=== PATIENT | female | born 1935 | race Caucasian/White ===

== ENCOUNTER → 2020-03-11 | Day surgery (SDC) | payer OTHER ==
[~2020-03-11] VITALS: Ht 160 cm; Wt 66.2 kg
[~2020-03-11] MED LIST: ALBUAER3 IN; B-COTAB59 PO; BUPIVACAINE W/ EPINEPH 0.25% INJ 50ML MDV ONE; CALCTAB50 PO; CARV25TA55 PO; FLUT1SPR5; GABA300C10 PO; LACTCAP35 PO; LIDOCAINE W/ EPINEPHRINE 2% INJ 20ML VIAL ONE; LOSARTAN POTASSIUM 25 MG TAB PO ONE; MIDAZOLAM HCL 1MG/1ML-2 ML VIAL ONE; MORPHINE SULF(PF) 0.5MG/ML 10ML VIAL ONE; MULT-1018 PO; ONDANSETRON HCL 4 MG/2 ML VIAL IV PRN; PROPOFOL 10 MG/ML 20 ML IV ONE; VANCOMYCIN HCL 1000 MG VL ONE; WARF5TAB71 PO; ceFAZolin 1GM/50ML 50 ML IV ONE; ePHEDrine SULFATE 50 MG/ML AMP IV PRN; fentaNYL CITRATE 100 MCG/2 ML VL IV PRN; fentaNYL CITRATE 100 MCG/2 ML VL ONE
[2020-03-11] MEDS: hydrALAZINE HCL 20 MG/ML VL IV PRN ×2 (11:04→11:27)
[2020-03-11 14:10] VITALS: BP 151/56
== END | disposition home or self-care (01) ==
LOC: SUR 07:09
PROVIDERS: ATTEND Anesthesiology Pain Medicine
DX: M48.062 Spinal stenosis, lumbar region with neurogenic claudication (principal); I10 Essential (primary) hypertension; D64.9 Anemia, unspecified; J45.909 Unspecified asthma, uncomplicated; K44.9 Diaphragmatic hernia without obstruction or gangrene; I48.91 Unspecified atrial fibrillation; Z11.59 Encounter for screening for other viral diseases; Z88.2 Allergy status to sulfonamides; Z88.8 Allergy status to other drugs, medicaments and biological substances; Z96.89 Presence of other specified functional implants
CPT/HCPCS: 22869; 22870; 72100; C1821; J0360; J0690; J2250; J2270; J2704; J3010; J3370; U0003; 76000

== ENCOUNTER → 2020-07-08 | Day surgery (SDC) | payer OTHER ==
[~2020-07-08] VITALS: Ht 160 cm; Wt 66.2 kg
[~2020-07-08] MED LIST changes: +BUPIVACAINE 0.25% INJ 50ML VIAL ONE; -BUPIVACAINE W/ EPINEPH 0.25% INJ 50ML MDV ONE; -GABA300C10 PO; +LOSA25TA38 PO; -LOSARTAN POTASSIUM 25 MG TAB PO ONE; -ONDANSETRON HCL 4 MG/2 ML VIAL IV PRN; +ONDANSETRON HCL 4 MG/2 ML VIAL ONE; +SODIUM CHLORIDE LOCK 10 ML ONE; +ceFAZolin 1GM/50ML 100 ML IV ONE; -ceFAZolin 1GM/50ML 50 ML IV ONE; -ePHEDrine SULFATE 50 MG/ML AMP IV PRN; -fentaNYL CITRATE 100 MCG/2 ML VL IV PRN
[2020-07-09 07:30] VITALS: BP 95/75
== END | disposition home or self-care (01) ==
LOC: SUR 07:18
PROVIDERS: ATTEND Anesthesiology Pain Medicine
DX: M48.061 Spinal stenosis, lumbar region without neurogenic claudication (principal); J45.909 Unspecified asthma, uncomplicated; Z96.89 Presence of other specified functional implants; Z90.710 Acquired absence of both cervix and uterus; Z79.899 Other long term (current) drug therapy; Z98.890 Other specified postprocedural states; Z20.828 Contact with and (suspected) exposure to other viral communicable diseases; Z53.8 Procedure and treatment not carried out for other reasons; Z88.1 Allergy status to other antibiotic agents; Z91.048 Other nonmedicinal substance allergy status
CPT/HCPCS: J0690; J2250; J2405; J2704; J3490

== ENCOUNTER 2024-11-18 06:05 | Inpatient (IN) | payer OTHER ==
[~2024-11-18] VITALS: Ht 160 cm; Wt 69.2 kg
[~2024-11-18 06:05] MED LIST changes: +ACET-1881 PO; +ALPR0.5T7 PO; +AMIO100T3 PO; +BUDE1AER4 PO; -BUPIVACAINE 0.25% INJ 50ML VIAL ONE; +FAMO-12 PO; -FLUT1SPR5; -LACTCAP35 PO; +LEVO50TA7 PO; -LIDOCAINE W/ EPINEPHRINE 2% INJ 20ML VIAL ONE; -LOSA25TA38 PO; -MIDAZOLAM HCL 1MG/1ML-2 ML VIAL ONE; -MORPHINE SULF(PF) 0.5MG/ML 10ML VIAL ONE; -ONDANSETRON HCL 4 MG/2 ML VIAL ONE; +OXYB5TAB14 PO; -PROPOFOL 10 MG/ML 20 ML IV ONE; -SODIUM CHLORIDE LOCK 10 ML ONE; +TRAM50TA2 PO; -VANCOMYCIN HCL 1000 MG VL ONE; +WARF-66 PO; -WARF5TAB71 PO; -ceFAZolin 1GM/50ML 100 ML IV ONE; -fentaNYL CITRATE 100 MCG/2 ML VL ONE
[2024-11-18] MEDS: ceFAZolin 2 GM/D5W100ml 100 ML IV ONE (06:41)
[2024-11-18] MEDS: LIDOCAINE 4MG/ML IV SOLN 500 ML IV ONE (06:43)
[2024-11-18] MEDS: MAGNESIUM SULFATE 1GM/100ML 100 ML IV ONE (06:43)
--- NOTE | 2024-11-18 07:17 | DVHHP2 ---
History Allergies: Coded Allergies: Iron (Verified Allergy, Unknown, 07/02/20) PO ONLY Sulfa Antibiotics (Verified Allergy, Unknown, 07/02/20) Chief Complaint: Cervical stenosis Present Illness(Onset/Duration Patient is here for elective spine surgery with Dr. Kerwin gonzalez C3-6 anterior cervical diskectomy and fusion with instrumentation and bone graft. Noncontributory Past Surgical History: Other (Hip surgeries heart valves x2 back surgery) Exam Exam General Appearance: None, Normal HEENT: Normal ENT Inspection Neck: Normal, Normal Inspection, Other (Patient is complaining of neck pain that goes up to her posterior occipital area sometimes on the bilateral neck and behind the ears.) Respiratory: No Accessory Muscle Use, None, No Respiratory Distress Cardiovascular: Other (Skin is pink warm and dry no complaints of chest pain) Gastrointestinal: Other (No complaints of nausea vomiting or diarrhea) Extremities: Other (Moves all extremities independently 5/5 strength patient does state that she does drop items when her hands become fatigued) Neurologic: Other (Patient states that she gets numb hands that wake her up at night, she states that the hands are weak she will drop objects frequently) Reflexes: Normal Skin: Normal Color LUIS GAYLE VP [employer] Nov 18, 2024 07:17
--- NOTE | 2024-11-18 07:21 | POSTOP ---
Post-Operative Note Post-Operative Note Preop Diagnosis Cervical stenosis with neurogenic claudication Postop Diagnosis: Cervical Degenerative Disk Disease and Spinal Stenosis Causing incapacitating neck pain, radiculopathy and progressive neurologic deficit Operation performed C3-6 anterior cervical diskectomy and fusion with instrumentation and bone graft Specimen None Anesthesia: General Anesthesiologist: Eusebio BRAY Blood Loss(fluid mgmt) See anesthesia record Tourniquet Time None Surgeon Dr. Kerwin Myers Drum Plater Polina Gayle [facility]. IRRIGATION ENGINEER Implant 5mm spacer x 2 7mm spacer x 1 3.5 x 14 screws x 6 Complications & Mgmt None Additional Remarks Disposition: -Pending -Discharge RX: Pending -Follow up appointment: with Dr Myers , keep your appointment as scheduled [phone] [id number] [facility] [address] [place] [id number] -Pain: - IV pain meds post op day 1, with PO supplementation, goal is to progress weaning off IV medications and control pain with PO only. morphine 1mg q 4 hours (PAIN 7-10) - P.O. analgesics:Tylenol 650MG (PAIN 1-3) [place] 10/325 mg (PAIN 4-6) - Muscle relaxers scheduled administration. This is a beneficial medications for the incisional pain as it is mostly related to muscle spasms. Flexeril 10 mg TID - Cepacol throat lozenges as needed for sore throat -Antibiotics Operative recommendations: -Postoperative dose:-Post operative antibiotics cefazolin 1 g IV piggyback every 8 hours x 48 hours total of 6 doses -DVT PPX: -Hold all chemical DVT/ blood thinners for 14 days postoperatively -use mechanical DVT PPX such as SCD's, ambulation -Activity: -Pending PT evaluation and patients progression -Sit at side of bed for meals -Goal: Ambulate independently and safely (may use assistive devices if needed) -Brace: - Bowers collar for comfort, -Medical Therapy goals: -Afebrile- Patient may develop a expected post operative fever by day 2-3, this may not be accompanied with a elevation in WBC. if fever develops: Acetaminophen for fever. Albuterol nebulizer Tx every 12 hours for 24 hours to facilitate adequate lung expansion and prevent development of atelectasis. -Euglycemic: bloods sugars under 130mmol/L for optimal healing -Normotensive: Avoid events of hypertension. This helps to keep post operative healing intact and avoids destabilization of beneficial hemostatic coagulation. Drains -Bulb drains: record output and characteristics of the drainage EVERY 6 HOURS- if there is no output indicate this by documenting 0ml output in note.. These will be to thumbprint compression unless otherwise ordered. Record output as well as amount in a note at least every 6 houtrs- more if indicated. Wound drainage is described by type, color, amount, and odor. Drainage can be 1 serous: Clear and thin, may be present in healing healthy wound. 2 serosanguineous containing blood may also be present and healthy healing wound 3. Sanguinous primarily blood 4. Purulent this is thick, white, and pus like. It may be indicated to give of a infection and should constitute a call to the provider immediately with the plan that the sample should be cultured. -Briseno: -DC in OR -Dressings -Anterior cervical patients: Initial surgical dressing may be reinforced if needed. If there is excessive bleeding, leaking, drainage in the bulb drain notify provider -Bowel management: -Colace 100mg bid -Diet: -Clear liquid diet and advance as patient tolerates within dietary limitations ( example: diabetic, Cardiac) -Incentive Spirometer: -10 x hour while awake, RN please educate and observe repeat demonstration, have IS at bedside POD #1 -X-rays: - none indicated at this time -Consults: -Physical Therapy evaluation, treatment recommendations, and discharge re commendations Call with questions Ray Gayle ACNP- Orthopaedic Spine Surgery nurse practitioner For Dr Troy Myers Patient was examined, chart reviewed, labs evaluated, and diagnostic studies and findings analyzed. Case was discussed with Dr. Kerwin Myers who formulated the plan of care. This medical document was created using an electronic medical record system with [employer] system. Although this document has been carefully reviewed, there might still be some phonetic and typographical errors. These areas are purely typographical due to imperfections of the software programs, and do not reflect any compromise in the patient's medical care. Date 11/18/24 Time 07:17 POLINA GAYLE NP Nov 18, 2024 07:21
[2024-11-18] MEDS: TRANEXAMIC ACID 20 ML ONE (07:28)
[2024-11-18 07:44] LABS: INR 1.17 (0.9-1.15); Partial Thromboplastin Time 30.3 SEC (24.5-34.5); Prothrombin Time 12.2 sec (9.3-11.8)
[2024-11-18] MEDS ORDERED: LIDOCAINE 2% (LOCAL ANESTH.) PF 5ml SDV ONE (07:50)
[2024-11-18] MEDS: oxyCODONE ER 10 MG TAB PO ONE (08:14)
[2024-11-18] MEDS ORDERED: GLYCOPYRROLATE 0.2 MG/ML 1ML VIAL ONE (08:14)
[2024-11-18] MEDS: ACETAMINOPHEN IV 1000 MG/100ML (10MG/ML) IV ONE (08:14)
[2024-11-18] MEDS ORDERED: LIDOCAINE 1% INJ PF 5ML AMP ONE (08:14)
[2024-11-18] MEDS ORDERED: ONDANSETRON HCL 4 MG/2 ML VIAL ONE (08:14)
[2024-11-18] MEDS ORDERED: ROCURONIUM 10MG/ML 10ML VIAL IV ONE (08:14)
[2024-11-18] MEDS ORDERED: DexAMETHasone SOD PHOS 10MG/1ML VIAL INJ ONE (08:14)
[2024-11-18] MEDS ORDERED: PROPOFOL 10 MG/ML 20 ML IV ONE (08:14)
[2024-11-18] MEDS ORDERED: KETAMINE 50mg/ML 1ml syringe ONE ×2 (08:14→10:16)
[2024-11-18] MEDS: GABAPENTIN 300 MG CAP PO ONE (08:14)
[2024-11-18] MEDS ORDERED: SODIUM CHLORIDE LOCK 10 ML ONE ×4 (08:15→10:16)
[2024-11-18] MEDS ORDERED: MORPHINE SULFATE INJ 2 MG/ml SYRG IV PRN (08:30)
[2024-11-18] MEDS ORDERED: HYDROcodone-ACET 10/325MG TAB PO PRN (08:30)
[2024-11-18] MEDS ORDERED: ONDANSETRON HCL 4 MG/2 ML VIAL IV PRN ×2 (08:30→11:45)
[2024-11-18] MEDS ORDERED: NITROGLYCERIN 0.4 MG SL TAB SL PRN (08:30)
[2024-11-18] MEDS ORDERED: fentaNYL CITRATE 100 MCG/2 ML VL ONE (09:42)
[2024-11-18] MEDS ORDERED: hydrALAZINE HCL 20 MG/ML VL ONE (09:50)
[2024-11-18] MEDS: DOCUSATE SOD 100 MG CAP PO SCH (10:00)
[2024-11-18] MEDS ORDERED: ePHEDrine SULFATE 50 MG/ML AMP ONE (10:11)
--- NOTE | 2024-11-18 11:09 | DVHOP2 ---
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 These include but are not limited to complications of anesthesia, postoperative infection, incomplete relief of symptoms, recurrence of symptoms, damage to blood vessels, nerves and tendons, deep venous thrombosis, pulmonary embolism and possible need for repeat surgery in the future. Name of Procedure Performed see detailed note Procedure Details Procedure Details: Pre Op Diagnosis: Cervical Degenerative Disk Disease and Severe Spinal Stenosis Causing incapacitating neck pain, radiculopathy and progressive neurologic deficit Post Op Diagnosis: 1. Cervical Degenerative Disk Disease and Spinal Stenosis Causing incapacitating neck pain, radiculopathy and progressive neurologic deficit Procedure: Cervical 3 to 4 anterior cervical discectomy with Cervical 3-4 foraminotomies and facetectomies to decompression the spinal canal and Cervical 4 nerve roots Cervical 4 to 5 anterior cervical discectomy with Cervical 4-5 foraminotomies and facetectomies to decompression the spinal canal and Cervical 5 nerve roots Cervical 5 to 6 anterior cervical discectomy with Cervical 5-6 foraminotomies and facetectomies to decompression the spinal canal and Cervical 6 nerve roots Cervical 3-6 anterior cervical Fusion Cervical 3-6 anterior cervical instrumentation with freestanding cages Cervical 3-4 placement of allograft prosthetic device Cervical 4-5 placement of allograft prosthetic device Cervical 5-6 placement of allograft prosthetic device Microscope for micro dissection Surgeon: Kerwin Myers MD Anesthesia: General Assist: Polina Bocanegra [employer] CRE[employer] SUPERVISOR Fluids and EBL: see anesthesia note Procedure Note: The patient was seen in the Pre-anesthesia Care Unit and the site of the incision was initialed by me with a felt tipped marker. All questions by the patient were answered to the satisfaction of the patient and the chart was reviewed. The patient was taken to the operating room and placed supine on the [facility] top table. General anesthesia was induced. Neuromonitoring leads were placed. A rolled towel was placed between the shoulder blades to hyperextend out the chest which will allow better exposure of the cervical spine. Halter traction to 10 pounds was placed. The arms were padded and adducted to the patients side making sure all pulses in the hands were present. Tape traction was undertaken on the shoulders to give us better radiographic exposure of the distal cervical spine. A gel-pad was placed under the occiput and 5 degrees of extension was placed on the neck without adverse effects to the patient. The anterior neck was prepped and draped. Pre-operative antibiotics were given 30 minutes prior to the start of the procedure. A c-arm fluoroscope was used to khadar out the incision site. At this time, a time out was taken per usual protocol. Next an incision was made through the skin with a 15 blade scalpel through the subcutaneous tissue down to the platysma. Self-retainers were placed. The platysma was incised along the longitudinal border with a Metzenbaum scissors. Blunt dissection was made through the deep cervical and pre-tracheal fascia taking care to protect the carotid sheath laterally and the Trachea/esophagus medially. The dissection was carried down to the prevertebral fascia. Any crossing vessels were ligated using a vascular clip or coagulated with a bovie. An esophageal retractor was next used to retract the trachea/esophagus and a bent [address] through the anterior annulus of the cervical disk and a lateral C-arm fluoroscopic image was taken to confirm that we were at the correct level. Next, bovie electrocautery was used to expose the bones of cervical 3,4,5,6 and bipolar electrocuatery was used to lift up the Longus colli and capitus muscles. Black-Belt Self Retainers were used to retract the longus colli and capitus muscles bilaterally as well as the trachea/esophagus to the right and the carotid sheath to the left. Smooth thin Black-Belt retractors were placed proximally and distally and a needle was placed again in the anterior annulus of the disk and an image taken to confirm the correct level. At this point, the microscope was wheeled in and an 11 blade scalpel incised the anterior annulus of the cervical 3/4 and 4/5 and 5/6 disks. 7mm thick at C3/4. 5mm thick at C4/5 and C5/6 Next, straight and curved curettes removed the remainder of the disks all the way down to the posterior longitudinal ligament. Carefully, a [place]yanneison number one rongeur incised the posterior longitudinal ligament at the lateral end of the above disks and using a micro, blunt tip nerve hook to separate the posterior longitudinal ligament from the dura, alternating 1 mm and 2 mm Kerison rongeurs removed the posterior longitudinal ligament. Next, Kerison 1mm and 2 mm rongeurs were alternated to get under the uncinate processes and undercut them to perform foraminotomies and factectomies at the cervical 3/4 and 4/5 and 5/6 levels to decompress the central canal and cervical 4,5 and 6 nerve roots. Next the microscope was wheeled away and the c-arm fluoroscope was wheeled into the field and a lateral image was obtained. Increasing size graft trials were used starting at a 5 mm thick size until the proper tension in the disk space and height caodaism obtained. We then placed final free standing cages at C3/4 and 4/5 and 5/6. Satisfactory placement was confirmed in the AP and lateral views using a C-arm fluoroscope. Copious irrigation of the wound with sterile saline and all bleeding was controlled before closure initiated. At this point, a 10 [place] round Bola Drain was place deep to the Platysma muscle and the Platysma was approximated with one interrupted 0-Vicryl suture. The subcutaneous tissue was closed with interrupted 2-0 vicryl sutures and the skin was closed with karey. Sterile dressings were placed and a cervical collar placed, the patient extubated, transferred to the stretcher and taken to the Recovery Room in unremarkable condition. Other Notes: Condition Stable Disposition Still a Patient KERWIN MYERS MD Nov 18, 2024 11:09
[2024-11-18 11:20] VITALS: PULSE 60; RESP 21; O2SAT 99
[2024-11-18] MEDS ORDERED: FLUMAZENIL 0.1 MG/ML INJ 10ML MDV IV PRN (11:45)
[2024-11-18] MEDS ORDERED: hydrALAZINE HCL 20 MG/ML VL IV PRN (11:45)
[2024-11-18] MEDS ORDERED: fentaNYL CITRATE 100 MCG/2 ML VL IV PRN (11:45)
[2024-11-18] MEDS ORDERED: NALOXONE HCL 0.4 MG/ML VIAL IV PRN (11:45)
[2024-11-18] MEDS ORDERED: oxyCODONE HCL 5MG TAB PO PRN (11:45)
[2024-11-18] MEDS ORDERED: HYDROmorphone HCL 2 MG/ML VL/or syr IV PRN (11:45)
[2024-11-18] MEDS ORDERED: ePHEDrine SULFATE 50 MG/ML AMP IV PRN (11:45)
[2024-11-18 14:24] VITALS: BP 150/68; PULSE 77; RESP 16; RESP 18; TEMP 98.7; O2SAT 96
--- NOTE | 2024-11-18 14:54 | DVH ---
C-ARM FLUOROSCOPY: PROCEDURE: c3-c6 anterior cervical fusion FLUOROSCOPY TIME: 62.1 sec DAP: 6.25 mgy FINDINGS: Spot intraoperative C arm radiographs demonstrating c3-c6 anterior cervical fusion. IMPRESSION: Please refer to surgical report for detailed findings.
--- NOTE | 2024-11-18 14:54 | DVH ---
C-ARM FLUOROSCOPY: PROCEDURE: c3-c6 anterior cervical fusion FLUOROSCOPY TIME: 62.1 sec DAP: 6.25 mgy FINDINGS: Spot intraoperative C arm radiographs demonstrating c3-c6 anterior cervical fusion. IMPRESSION: Please refer to surgical report for detailed findings.
[2024-11-18 15:19] VITALS: BP 150/78; PULSE 61; RESP 20; TEMP 97.9; O2SAT 92
[2024-11-18] MEDS: D5W/SOD CHLO 0.9% 1,000 ML IV SCH (15:50)
[2024-11-18] MEDS: CYCLOBENZAPRINE HCL 10 MG TAB PO SCH (15:51)
[2024-11-18] MEDS: ceFAZolin 1GM/50ML 50 ML IV SCH (15:51)
[2024-11-18 17:00] VITALS: BP 157/67; PULSE 59; RESP 20; TEMP 96.6; O2SAT 96
[2024-11-18 20:00] VITALS: PULSE 60
[2024-11-18] MEDS: ACETAMINOPHEN 325 MG TAB PO PRN (21:15)
--- NOTE | 2024-11-19 07:05 | DVHPN2 ---
Progress Note - Surgical Date Seen: Nov 19, 2024 Post op day Post op day: 1 Subjective Patient reports: No new complaints, Feels better, Other (Nightshift concern for excessive drainage seeping around the drain site. Drainage is as of acceptable level) Review of Systems: HEENT:Normal, MSK:Abnormal (Patient still remains weak), NEURO:Normal (Patient able to move all extremities independently no neurologic deficits) Objective Vital signs Vital Sign Date Time Temp Pulse Resp B/P (MAP) Pulse Ox O2 Delivery O2 Flow Rate FiO2 11/18/24 20:00 60 11/18/24 17:00 96.6 20 157/67 (97) 96 96.6 11/18/24 14:25 Nasal Cannula 2.0 92 Total Intake and Output 11/18/24 11/18/24 11/19/24 15:00 23:00 07:00 Intake Total 100 ml Output Total 272 ml 325 ml Balance -272 ml -225 ml Medications Current Medications Medications Dose Ordered Sig/Kari Route Start Time Stop Time Status Last Admin Dose Admin Dextrose/Sodium Chloride 1,000 ml @ 100 mls/hr Q10H IV 11/18/24 08:30 11/19/24 04:38 100 MLS/HR Ondansetron HCl 4 mg Q4HP PRN IV 11/18/24 08:30 Acetaminophen 650 mg Q6HP PRN PO 11/18/24 08:30 11/18/24 21:15 650 MG Acetaminophen/ Hydrocodone Bitart 1 tab Q6HP PRN PO 11/18/24 08:30 Morphine Sulfate 1 mg Q4HP PRN IV 11/18/24 08:30 Cyclobenzaprine HCl 10 mg TID PO 11/18/24 14:00 11/19/24 05:15 10 MG Docusate Sodium 100 mg BID PO 11/18/24 10:00 11/18/24 21:16 100 MG Cefazolin Sodium 50 ml @ 100 mls/hr Q8HR IV 11/18/24 14:00 11/20/24 06:29 11/19/24 05:12 100 MLS/HR Nitroglycerin 0.4 mg Q5MINP PRN SL 11/18/24 08:30 Morphine Sulfate 2 mg Q30M PRN IV 11/18/24 08:30 Oxycodone HCl 10 mg ONCE PRN PO 11/18/24 11:45 Examination: GENERAL:Normal, HEENT:Normal, NECK:Normal, LUNGS:Normal, CVS:Normal, ABDOMEN:Normal, MSK:Abnormal (Patient is extremely), SKIN:Normal ( able to reposition herself in bed skin incision well approximated with karey drain was intact noted to have drainage at the insertion point. Drain), NEURO:Normal (Movement of all extremities is present unacceptable strength), :Normal (priate range of motion) Problem List/Assessment/Plan Problems: (1) Muscle spasms of neck (2) Postoperative pain after spinal surgery Assessment and Plan Upon rounds this morning we are awaiting for physical therapy to give us a good assessment. Patient feels that she needs to go to detention facility due to her unusual weakness. Patient does live alone and this seems reasonable from a spine surgery perspective Awaiting physical therapy evaluation assessment of discharge needs Patient is progressing well Drain is removed today Disposition: -Pending -Discharge RX: Pending -Follow up appointment: with Dr Myers , keep your appointment as scheduled [id number] [facility] [address] [place] [id number] -Pain: - IV pain meds post op day 1, with PO supplementation, goal is to progress we aning off IV medications and control pain with PO only. morphine 1mg q 4 hours (PAIN 7-10) - P.O. analgesics:Tylenol 650MG (PAIN 1-3) [place] 10/325 mg (PAIN 4-6) - Muscle relaxers scheduled administration. This is a beneficial medications for the incisional pain as it is mostly related to muscle spasms. Flexeril 10 mg TID - Cepacol throat lozenges as needed for sore throat -Antibiotics Operative recommendations: -Postoperative dose:-Post operative antibiotics cefazolin 1 g IV piggyback every 8 hours x 48 hours total of 6 doses -DVT PPX: -Hold all chemical DVT/ blood thinners for 14 days postoperatively -use mechanical DVT PPX such as SCD's, ambulation -Activity: -Pending PT evaluation and patients progression -Sit at side of bed for meals -Goal: Ambulate independently and safely (may use assistive devices if needed) -Brace: - Barnard collar for comfort, -Medical Therapy goals: -Afebrile- Patient may develop a expected post operative fever by day 2-3, this may not be accompanied with a elevation in WBC. if fever develops: Acetaminophen for fever. Albuterol nebulizer Tx every 12 hours for 24 hours to facilitate adequate lung expansion and prevent development of atelectasis. -Euglycemic: bloods sugars under 130mmol/L for optimal healing -Normotensive: Avoid events of hypertension. This helps to keep post operative healing intact and avoids destabilization of beneficial hemostatic coagulation. Drains -Bulb drains: record output and characteristics of the drainage EVERY 6 HOURS- if there is no output indicate this by documenting 0ml output in note.. These will be to thumbprint compression unless otherwise ordered. Record output as well as amount in a note at least every 6 houtrs- more if indicated. Wound drainage is described by type, color, amount, and odor. Drainage can be 1 serous: Clear and thin, may be present in healing healthy wound. 2 serosanguineous containing blood may also be present and healthy healing wound 3. Sanguinous primarily blood 4. Purulent this is thick, white, and pus like. It may be indicated to give of a infection and should constitute a call to the provider immediately with the plan that the sample should be cultured. -Briseno: -DC in OR -Dressings -Anterior cervical patients: Initial surgical dressing may be reinforced if needed. If there is excessive bleeding, leaking, drainage in the bulb drain notify provider -Bowel management: -Colace 100mg bid -Diet: -Clear liquid diet and advance as patient tolerates within dietary limitations ( example: diabetic, Cardiac) -Incentive Spirometer: -10 x hour while awake, RN please educate and observe repeat demonstration, have IS at bedside POD #1 -X-rays: - none indicated at this time -Consults: -Physical Therapy evaluation, treatment recommendations, and discharge recommendations Call with questions Ray Gayle ACNP- Orthopaedic Spine Surgery nurse practitioner For Dr Troy Myers Patient was examined, chart reviewed, labs evaluated, and diagnostic studies and findings analyzed. Case was discussed with Dr. Kerwin Myers who formulated the plan of care. My Orders My Orders Orders - LUIS GAYLE HAND SIGN WRITER Procedure Category Date Status Time Throat Lozenges PHA 11/19/24 Verified (Cepastat Lozenges) 07:15 Plan discussed with Plan discussed with: Patient, Other (Bedside RN) Visit Coding Surgery Date of Service if different f: Nov 19, 2024 Billing Provider: LUIS GAYLE NP Surgery Visit Codes: NOT BILLABLE LUIS GAYLE NP Nov 19, 2024 07:05
[2024-11-19 08:00] VITALS: PULSE 66; PULSE 80; RESP 16; O2SAT 94
[2024-11-19 08:52] LABS: Basophils # (auto) 0 10 ^3/uL (0-0.2); Eosinophils # (auto) 0 10 ^3/uL (0-0.8); Hemoglobin 8.9 g/dL (12.2-16.2); Monocytes # (auto) 0.6 10 ^3/uL (0-1.3); Red Cell Distribution Width 16.5 % (11.8-14.3)
[2024-11-19 08:54] LABS: Basophils % (auto) 0.2 % (0.0-2.0); Hematocrit 29.7 % (36.0-46.0); Lymphocytes # (auto) 1.6 10 ^3/uL (0.4-5.4); Lymphocytes % (auto) 15.3 % (10.0-50.0); Mean Corpuscular Hemoglobin 34.5 pg (28.0-32.0); Mean Corpuscular Hgb Conc. 29.9 g/dL (32.0-36.0); Mean Corpuscular Volume 115.6 fL (80.0-100.0); Monocytes % (auto) 5.8 % (0.0-12.0); Neutrophils # (auto) 8.4 10 ^3/uL (1.6-8.6); Neutrophils % (auto) 78.7 % (37.0-80.0); Platelet Count (auto) 97 10^3/uL (140-450); Red Blood Cells 2.57 10^6/uL (4.0-5.20); White Blood Cell 10.7 10^3/uL (4.4-10.8)
[2024-11-19 08:55] LABS: Macrocytosis Marked; Platelet Estimate Decreased
[2024-11-19 09:00] VITALS: BP 125/49; PULSE 61; RESP 18; TEMP 98.3; O2SAT 93
[2024-11-19] MEDS: THROAT LOZENGES(CEPASTAT) MT PRN (09:02)
[2024-11-19 09:06] LABS: INR 1.32 (0.9-1.15); Partial Thromboplastin Time 31.6 SEC (24.5-34.5); Prothrombin Time 13.6 sec (9.3-11.8)
[2024-11-19 13:00] VITALS: BP 150/50; PULSE 66; RESP 20; TEMP 98.1; O2SAT 94
[2024-11-19] MEDS ORDERED: FAMOTIDINE 20 MG TAB PO SCH (14:45)
[2024-11-19] MEDS ORDERED: ALPRAZolam 0.5 MG TAB PO SCH (14:45)
--- NOTE | 2024-11-19 16:06 | DVHINCON2 ---
Date Seen: Nov 19, 2024 Referring Physician Orthopedic spine surgery. Reason for Consultation Medical management. History of Present Illness 88-year-old female frozen known history of cervical spine stenosis was brought in by orthopedic spine surgery for elective procedure. Patient is status post C3-4/C4-5/C5-6 spine surgery postop day one. Patient is complaining of bleeding from the dressing site. Patient does have known history of mitral valve and aortic valve replacement with a known history of hypertension and hypothyroidism. Patient was on Coumadin which was held five days before surgery. Past Medical History History of aortic valve surgery Mitral valve surgery Hypertension Hypothyroidism Chronic neck pain Past Surgical History Aortic valve surgery Mitral valve surgery C-spine surgery. Family History: Patient reports no known family medical history. Allergies: Coded Allergies: Iron (Verified Allergy, Unknown, 07/02/20) PO ONLY Sulfa Antibiotics (Verified Allergy, Unknown, 07/02/20) Home Meds Reported Medications Budesonide-Formoterol Fumarate (Budesonide/Formoterol Fum 160-4.5 Mcg/Act) 1 Aer Aer, 2 PUFF PO BID for 30 Days, #10.2 11/19/24 Famotidine (Famotidine) 20 Mg Tab, 20 MG PO PRN for 30 Days, MG 11/12/24 Acetaminophen (Acetaminophen) Unknown Strength Tab, PO PRN PRN for MILD PAIN for 30 Days, MG 0 Refills 11/12/24 Tramadol Hcl (Tramadol Hcl) 50 Mg Tab, 1 TAB PO DAILYP for 30 Days, #30 11/12/24 Alprazolam (Alprazolam) 0.5 Mg Tab, 1 TAB PO PRN, #30 TAB 11/12/24 Levothyroxine Sodium (Levothyroxine Sodium) 50 Mcg Tab, 1 TAB PO QAM for 90 Days, #90 11/12/24 Oxybutynin Chloride (Oxybutynin Chloride) 5 Mg Tab, 1 TAB PO DAILY for 90 Days, #90 11/12/24 Amiodarone Hcl (AMIODARONE HCL) 100 Mg Tab, 100 MG PO DAILY, TAB 11/12/24 Warfarin Sodium (Warfarin Sodium) 5 Mg Tab, 5 MG PO 4XWEEKLY for 30 Days, MG 07/02/20 Albuterol Sulfate (VENTOLIN MDI) 90 Mcg Ih, 2 PUFF IN PRN, INH 03/09/20 Multiple Vitamin (Multivitamins) Tab, 1 TAB PO DAILY, #90 TAB 3 Refills 03/09/20 Calcium Carbonate-Vitamin D (Calcium 600+D) +D Tab, 1 TAB PO DAILY, TAB 03/09/20 B-Complex W/ Folic Acid (B Complex) Tab, 1 TAB PO DAILY, TAB 03/09/20 Carvedilol (Carvedilol) 25 Mg Tab, 25 MG PO Q12HR for 30 Days, MG 03/09/20 Current Medications Current Medications Medications (Trade) Dose Ordered Sig/Kari Route PRN Reason Start Time Stop Time Status Last Admin Throat Lozenges (Cepastat Lozenges) 1 kika Q2HP PRN MT FOR SORE THROAT 11/19/24 07:15 11/19/24 09:02 Alprazolam (Xanax Tablet) 0.5 mg PRN PO 11/19/24 14:45 Hold Famotidine (Pepcid Tablet) 20 mg PRN PO 11/19/24 14:45 Hold Levothyroxine Sodium (Synthroid Tablet) 50 mcg QAM PO 11/20/24 07:00 Multivitamins (Mvi Tab) 1 tab DAILY PO 11/20/24 10:00 Oxybutynin Chloride (Ditropan Tablet) 2.5 mg BID PO 11/19/24 22:00 Tramadol HCl (Ultram) 50 mg DAILYP PO 11/20/24 10:00 Future Hold Amiodarone HCl (Cordarone Tablet) 100 mg DAILY PO 11/20/24 10:00 Patient Own Medication 1 tab DAILY PO 11/20/24 10:00 UNV Patient Own Medication 2 puff BID PO 11/19/24 22:00 11/19/24 15:07 DC Patient Own Medication 1 tab DAILY PO 11/20/24 10:00 UNV Carvedilol (Coreg Tablet) 25 mg Q12HR PO 11/19/24 22:00 Albuterol (Ventolin Medneb) 2.5 mg Q6HR NEB 11/19/24 18:00 Budesonide (Pulmicort) 0.5 mg BID NEB 11/19/24 22:00 Review of Systems Twelve review of system are negative besides mentioned above. 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 Labs/Diagnostic Data Labs Test 11/19/24 08:10 Range/Units White Blood Count 10.7 4.4-10.8 10^3/uL Red Blood Count 2.57 L 4.0-5.20 10^6/uL Hemoglobin 8.9 L 12.2-16.2 g/dL Hematocrit 29.7 L 36.0-46.0 % Mean Corpuscular Volume 115.6 H 80.0-100.0 fL Mean Corpuscular Hemoglobin 34.5 H 28.0-32.0 pg Mean Corpuscular Hemoglobin Concent 29.9 L 32.0-36.0 g/dL Red Cell Distribution Width 16.5 H 11.8-14.3 % Platelet Count 97 L 140-450 10^3/uL Mean Platelet Volume 7.9 6.9-10.8 fL Neutrophils (%) (Auto) 78.7 37.0-80.0 % Lymphocytes (%) (Auto) 15.3 10.0-50.0 % Monocytes (%) (Auto) 5.8 0.0-12.0 % Eosinophils (%) (Auto) 0.0 0.0-7.0 % Basophils (%) (Auto) 0.2 0.0-2.0 % Neutrophils # (Auto) 8.4 1.6-8.6 10 ^3/uL Lymphocytes # (Auto) 1.6 0.4-5.4 10 ^3/uL Monocytes # (Auto) 0.6 0-1.3 10 ^3/uL Eosinophils # (Auto) 0 0-0.8 10 ^3/uL Basophils # (Auto) 0 0-0.2 10 ^3/uL Nucleated Red Blood Cells 0.0 % Platelet Estimate Decreased Macrocytosis Marked Prothrombin Time 13.6 H 9.3-11.8 sec Prothrombin Time INR 1.32 H 0.9-1.15 Activated Partial Thromboplast Time 31.6 24.5-34.5 SEC Assessment 88-year-old female with a known history of aortic valve surgery, mitral valve surgery, hypertension, hypothyroidism, chronic neck pain who was brought in by spine surgery for elective procedure. 1. Status post aortic valve replacement 2. Status post mitral valve replacement 3. Hypertension 4. Hypothyroidism 5. Cervical spine stenosis status post C3-4/C4-5/C5-6 spine surgery -continue pain meds as needed, physical therapy evaluation and treatment -orthopedic spine surgery follow up for discharge plan. Problems(with codes): (1) Muscle spasms of neck (2) Postoperative pain after spinal surgery Plan discussed with: Patient, Other Date of Service: Nov 19, 2024 Billing Provider: EVELINA NUÑEZ MD Common Visit Codes: NOT BILLABLE EVELINA NUÑEZ MD Nov 19, 2024 16:06
[2024-11-19 17:00] VITALS: BP 159/57; PULSE 64; RESP 20; TEMP 98.5; O2SAT 93
[2024-11-19 20:00] VITALS: PULSE 80; RESP 16; O2SAT 94
[2024-11-19 21:00] VITALS: BP 151/70; PULSE 103; RESP 17; TEMP 99.2; O2SAT 90
[2024-11-19] MEDS ORDERED: [UNRECOGNIZED DRUG - OTHER] PO SCH (22:00)
[2024-11-19] MEDS ORDERED: BUDESONIDE PO SCH (22:00)
[2024-11-19] MEDS: OXYBUTYNIN CHL 5 MG TAB PO SCH (22:49)
[2024-11-19] MEDS: CARVEDILOL 12.5 MG TAB PO SCH (22:55)
[2024-11-20] VITALS (14 sets, daily range): BP systolic 124–196; BP diastolic 49–93; PULSE 61–90; RESP 16–21; TEMP 97.5–99.8; O2SAT 90–100
[2024-11-20] MEDS: LEVOTHYROXINE SODIUM 50 MCG TAB PO SCH (06:10)
[2024-11-20 07:03] LABS: Hematocrit 23.1 % (36.0-46.0)
[2024-11-20 07:08] LABS: Mean Corpuscular Hgb Conc. 23.5 g/dL (32.0-36.0); Mean Corpuscular Volume 144.9 fL (80.0-100.0); Platelet Count (auto) 48 10^3/uL (140-450); Red Blood Cells 1.59 10^6/uL (4.0-5.20); Red Cell Distribution Width 17.3 % (11.8-14.3); White Blood Cell 4.5 10^3/uL (4.4-10.8)
[2024-11-20 07:13] LABS: Hemoglobin 5.4 g/dL (12.2-16.2)
[2024-11-20 07:14] LABS: Basophils % (manual) 0 (0.0-2.0); Blast Cells 0; Eosinophils % (manual) 0 (0-7); Metamyelocytes % 0; Monocytes % (manual) 0 (0-12); Myelocytes % 0; Promyelocytes % 0; Reactive Lymphocytes 0
[2024-11-20 08:17] LABS: Band Neutrophils % (manual) 3; Lymphocytes % (manual) 24 (10.0-50.0); Macrocytosis Marked; Platelet Estimate Decreased
[2024-11-20 08:31] LABS: Hematocrit 31.7 % (36.0-46.0); Hemoglobin 10.6 g/dL (12.2-16.2)
[2024-11-20 08:50] LABS: Albumin 4.1 g/dL (3.2-4.8); Alkaline Phosphatase 50 U/L (46-116); Anion Gap 6 (5-15); Aspartate Aminotransferase 26 U/L (13-40); BUN/Creatinine Ratio 8.8 (10.0-20.0); Bilirubin, Total 0.8 mg/dL (0.2-1.0); Calcium 9.1 mg/dL (8.7-10.4); Carbon Dioxide 26 mmol/L (20-31); Glucose 102 mg/dL (74-106); Potassium 3.7 mmol/L (3.5-5.1); Sodium 145 mmol/L (136-145); Total Protein 6.3 g/dL (5.7-8.2)
[2024-11-20 08:53] LABS: Alanine Aminotransferase < 9 U/L (7-40); Blood Urea Nitrogen 9 mg/dL (9-23); Chloride 113 mmol/L (98-107)
[2024-11-20] MEDS: BUDESONIDE (INHALATION) 0.5 MG/2 ML NEB NEB SCH (09:46)
[2024-11-20] MEDS: ALBUTEROL SULF 2.5 MG/0.5ML(0.5%) NEB SOLN NEB SCH (09:47)
[2024-11-20] MEDS: CALCIUM W/VIT D (600MG/400IU) TAB PO SCH (09:58)
[2024-11-20] MEDS: AMIODARONE HCL 200 MG TAB PO SCH (09:59)
[2024-11-20] MEDS: B-COMPLEX W/ C & FOLIC ACID(NEPHROVITE TAB) PO SCH (10:00)
[2024-11-20] MEDS ORDERED: traMADol HCL 50 MG TAB PO SCH (10:00)
[2024-11-20] MEDS: MULTIPLE VITAMIN TAB PO SCH (10:00)
--- NOTE | 2024-11-20 10:57 | DVH ---
INDICATION: SOB TECHNIQUE: Frontal view of the chest. COMPARISON: None FINDINGS: Left pacemaker.. Small right pleural effusion. Cardiomegaly. The bony structures of the chest are int act without fracture. IMPRESSION: 1. Cardiomegaly with CHF. Small right pleural effusion.
--- NOTE | 2024-11-20 11:42 | DVHPN2 ---
Progress Note - Surgical Date Seen: Nov 20, 2024 Post op day Post op day: 2 Subjective Patient reports: Feels better, Other (preoperative symptoms are improving however her voice has increased in horsness) Review of Systems: HEENT:Normal (patient normally can speak without trouble), CVS:Normal, RESPIRATORY:Abnormal (on O2), GI:Normal, :Normal, MSK:Normal (moves all independently), NEURO:Normal Objective Vital signs Vital Sign Date Time Temp Pulse Resp B/P (MAP) Pulse Ox O2 Delivery O2 Flow Rate FiO2 11/20/24 11:37 98 Nasal Cannula 2.0 11/20/24 11:37 28 11/20/24 11:37 67 18 11/20/24 10:34 159/63 11/20/24 09:00 98.4 98.4 Total Intake and Output 11/19/24 11/19/24 11/20/24 15:00 23:00 07:00 Intake Total 50 ml 890 ml 1381 ml Output Total 1500 ml 1425 ml Balance 50 ml -610 ml -44 ml Medications Current Medications Medications Dose Ordered Sig/Kari Route Start Time Stop Time Status Last Admin Dose Admin Dextrose/Sodium Chloride 1,000 ml @ 100 mls/hr Q10H IV 11/18/24 08:30 11/19/24 23:05 100 MLS/HR Ondansetron HCl 4 mg Q4HP PRN IV 11/18/24 08:30 Acetaminophen 650 mg Q6HP PRN PO 11/18/24 08:30 11/19/24 22:49 650 MG Acetaminophen/ Hydrocodone Bitart 1 tab Q6HP PRN PO 11/18/24 08:30 Morphine Sulfate 1 mg Q4HP PRN IV 11/18/24 08:30 Cyclobenzaprine HCl 10 mg TID PO 11/18/24 14:00 11/20/24 06:10 10 MG Docusate Sodium 100 mg BID PO 11/18/24 10:00 11/19/24 22:33 100 MG Nitroglycerin 0.4 mg Q5MINP PRN SL 11/18/24 08:30 Morphine Sulfate 2 mg Q30M PRN IV 11/18/24 08:30 Oxycodone HCl 10 mg ONCE PRN PO 11/18/24 11:45 Throat Lozenges 1 chetna Q2HP PRN MT 11/19/24 07:15 11/19/24 09:02 1 CHETNA Alprazolam 0.5 mg PRN PO 11/19/24 14:45 Hold Famotidine 20 mg PRN PO 11/19/24 14:45 Hold Levothyroxine Sodium 50 mcg QAM PO 11/20/24 07:00 11/20/24 06:10 50 MCG Multivitamins 1 tab DAILY PO 11/20/24 10:00 Oxybutynin Chloride 2.5 mg BID PO 11/19/24 22:00 11/19/24 22:49 2.5 MG Tramadol HCl 50 mg DAILYP PO 11/20/24 10:00 Hold Amiodarone HCl 100 mg DAILY PO 11/20/24 10:00 Multivit/Ca Carb/ B Cmplx/FA/Prenat 1 tab DAILY PO 11/20/24 10:00 Calcium/Vitamin D 1 tab DAILY@0800 PO 11/20/24 08:00 Carvedilol 25 mg Q12HR PO 11/19/24 22:00 11/19/24 22:55 25 MG Albuterol 2.5 mg Q6HR NEB 11/19/24 18:00 11/20/24 11:36 2.5 MG Budesonide 0.5 mg BID NEB 11/19/24 22:00 11/20/24 09:46 0.5 MG Dexamethasone Sodium Phosphate 10 mg Q8HR IV 11/20/24 14:00 11/23/24 14:00 UNV Laboratory Laboratory Tests 11/20/24 08:09 11/20/24 05:58 Test 11/20/24 08:09 Range/Units Serum Glucose 102 74-106 mg/dL Examination: GENERAL:Normal, HEENT:Abnormal (hoarse voice and sore throat worse than yesterday), NECK:Abnormal (hoarse voice and sore throat worse than yesterday), CVS:Normal, ABDOMEN:Normal, MSK:Normal, SKIN:Normal, NEURO:Normal, :Normal Problem List/Assessment/Plan Problems: (1) Postoperative pain after spinal surgery (2) Muscle spasms of neck Assessment and Plan patient is having trouble speaking today, swallow eval pending decadron 10mg q 8 hr IV ordered to help resolve post op sore throat and swelling per Dr Myers. ordered c-collar to be worn while mobilizing for 3 months. collar was not given at her pre op appointment so we ordered it here. DR Mancera is managing her medical concerns. order placed for soft tissue neck xray. Disposition: -Pending -Discharge RX: Pending -Follow up appointment: with Dr Myers , keep your appointment as scheduled [phone] [id number] [facility] [address] [place] [address] -Pain: - IV pain meds post op day 1, with PO supplementation, goal is to progress weaning off IV medications and control pain with PO only. morphine 1mg q 4 hours (PAIN 7-10) - P.O. analgesics:Tylenol 650MG (PAIN 1-3) Sheldon 10/325 mg (PAIN 4-6) - Muscle relaxers scheduled administration. This is a beneficial medications for the incisional pain as it is mostly related to muscle spasms. Flexeril 10 mg TID - Cepacol throat lozenges as needed for sore throat -Antibiotics Operative recommendations: -Postoperative dose:-Post operative antibiotics cefazolin 1 g IV piggyback every 8 hours x 48 hours total of 6 doses -DVT PPX: -Hold all chemical DVT/ blood thinners for 14 days postoperatively -use mechanical DVT PPX such as SCD's, ambulation -Activity: -Pending PT evaluation and patients progression -Sit at side of bed for meals -Goal: Ambulate independently and safely (may use assistive devices if needed) -Brace: - Bancroft collar for comfort, -Medical Therapy goals: -Afebrile- Patient may develop a expected post operative fever by day 2-3, this may not be accompanied with a elevation in WBC. if fever develops: Acetaminophen for fever. Albuterol nebulizer Tx every 12 hours for 24 hours to facilitate adequate lung expansion and prevent development of atelectasis. -Euglycemic: bloods sugars under 130mmol/L for optimal healing -Normotensive: Avoid events of hypertension. This helps to keep post operative healing intact and avoids destabilization of beneficial hemostatic coagulation. Drains -Bulb drains: record output and characteristics of the drainage EVERY 6 HOURS- if there is no output indicate this by documenting 0ml output in note.. These will be to thumbprint compression unless otherwise ordered. Record output as well as amount in a note at least every 6 houtrs- more if indicated. Wound drainage is described by type, color, amount, and odor. Drainage can be 1 serous: Clear and thin, may be present in healing healthy wound. 2 serosanguineous containing blood may also be present and healthy healing wound 3. Sanguinous primarily blood 4. Purulent this is thick, white, and pus like. It may be indicated to give of a infection and should constitute a call to the provider immediately with the plan that the sample should be cultured. -Briseno: -DC in OR -Dressings -Anterior cervical patients: Initial surgical dressing may be reinforced if needed. If there is excessive bleeding, leaking, drainage in the bulb drain notify provider -Bowel management: -Colace 100mg bid -Diet: -Clear liquid diet and advance as patient tolerates within dietary limitations ( example: diabetic, Cardiac) -Incentive Spirometer: -10 x hour while awake, RN please educate and observe repeat demonstration, have IS at bedside POD #1 -X-rays: - none indicated at this time -Consults: -Physical Therapy evaluation, treatment recommendations, and discharge recommendations Call with questions Ray Gayle [facility]- Orthopaedic Spine Surgery nurse practitioner For Dr Troy Myers Patient was examined, chart reviewed, labs evaluated, and diagnostic studies and findings analyzed. Case was discussed with Dr. Kerwin Myers who formulated the plan of care. My Orders My Orders Orders - LUIS GAYLE NP Procedure Category Date Status Time Dexamethasone PHA 11/20/24 Logged Injection (Decadron 14:00 Plan discussed with Plan discussed with: Patient, Other (Rosa M x [phone]) Visit Coding Surgery Date of Service if different f: Nov 20, 2024 Billing Provider: LUIS GAYLE NP Surgery Visit Codes: NOT BILLABLE LUIS GAYLE NP Nov 20, 2024 11:42
--- NOTE | 2024-11-20 12:51 | DVH ---
Procedure: XY NECK FOR SOFT TISSUE Exam Date: 11/20/2024 12:20 PM History: developing horsness post operativly Comparison Study: None available at time of dictation. Technique: Soft Tissue Neck: AP and lateral views. Findings/IMPRESSION: Precervical soft-tissue measures 2.1 cm. This may represent normal postoperative edema. Anterior cervical spinal fixation hardware is present.
[2024-11-20] MEDS: MORPHINE SULFATE INJ 2 MG/ml SYRG IV PRN (14:19)
[2024-11-20] MEDS: DexAMETHasone SOD PHOS 10MG/1ML VIAL INJ IV SCH (14:24)
--- NOTE | 2024-11-20 16:19 | DVHPN2 ---
Subjective Night sweats noted. Patient feels swallow evaluation because of the throat swelling, IV Decadron has been ordered. Reviewed: Care Plan Changes from previous H/P or p: No Changes, Changes Objective Vitals Vital Signs Date Time Temp Pulse Resp B/P (MAP) Pulse Ox O2 Delivery O2 Flow Rate FiO2 11/20/24 14:49 62 16 142/82 11/20/24 13:08 99.8 99 99.8 11/20/24 11:37 Nasal Cannula 2.0 11/20/24 11:37 28 Intake/Output Intake and Output 11/20/24 07:00 Intake Total 2321 ml Output Total 2925 ml Balance -604 ml Intake Oral 1515 ml IV Total 806 ml Output Urine Total 2925 ml Exam HEENT pupils are reactive Neck has antiseptic dressing Neck CVS S1-S2 regular rate and rhythm Respiratory bilateral clear GI positive bowel sound Extremity no edema 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 Medications Current Medications Medications Dose Ordered Sig/Kari Route Start Time Stop Time Status Last Admin Dose Admin Dextrose/Sodium Chloride 1,000 ml @ 100 mls/hr Q10H IV 11/18/24 08:30 11/20/24 14:24 100 MLS/HR Ondansetron HCl 4 mg Q4HP PRN IV 11/18/24 08:30 Acetaminophen 650 mg Q6HP PRN PO 11/18/24 08:30 11/19/24 22:49 650 MG Acetaminophen/ Hydrocodone Bitart 1 tab Q6HP PRN PO 11/18/24 08:30 Morphine Sulfate 1 mg Q4HP PRN IV 11/18/24 08:30 11/20/24 14:19 1 MG Cyclobenzaprine HCl 10 mg TID PO 11/18/24 14:00 11/20/24 06:10 10 MG Docusate Sodium 100 mg BID PO 11/18/24 10:00 11/19/24 22:33 100 MG Nitroglycerin 0.4 mg Q5MINP PRN SL 11/18/24 08:30 Morphine Sulfate 2 mg Q30M PRN IV 11/18/24 08:30 Oxycodone HCl 10 mg ONCE PRN PO 11/18/24 11:45 Throat Lozenges 1 chetna Q2HP PRN MT 11/19/24 07:15 11/19/24 09:02 1 CHETNA Alprazolam 0.5 mg PRN PO 11/19/24 14:45 Hold Famotidine 20 mg PRN PO 11/19/24 14:45 Hold Levothyroxine Sodium 50 mcg QAM PO 11/20/24 07:00 11/20/24 06:10 50 MCG Multivitamins 1 tab DAILY PO 11/20/24 10:00 Oxybutynin Chloride 2.5 mg BID PO 11/19/24 22:00 11/19/24 22:49 2.5 MG Tramadol HCl 50 mg DAILYP PO 11/20/24 10:00 Hold Amiodarone HCl 100 mg DAILY PO 11/20/24 10:00 Multivit/Ca Carb/ B Cmplx/FA/Prenat 1 tab DAILY PO 11/20/24 10:00 Calcium/Vitamin D 1 tab DAILY@0800 PO 11/20/24 08:00 Carvedilol 25 mg Q12HR PO 11/19/24 22:00 11/19/24 22:55 25 MG Albuterol 2.5 mg Q6HR NEB 11/19/24 18:00 11/20/24 11:36 2.5 MG Budesonide 0.5 mg BID NEB 11/19/24 22:00 11/20/24 09:46 0.5 MG Dexamethasone Sodium Phosphate 10 mg Q8HR IV 11/20/24 14:00 11/23/24 14:00 11/20/24 14:24 10 MG Laboratory Results Laboratory Tests 11/20/24 05:58 11/20/24 08:09 Chemistry Test 11/20/24 08:09 Albumin 4.1 g/dL (3.2-4.8) Calcium Level 9.1 mg/dL (8.7-10.4) Total Protein 6.3 g/dL (5.7-8.2) LFT Test 11/20/24 08:09 Alanine Aminotransferase (ALT) < 9 U/L (7-40) Alkaline Phosphatase 50 U/L (46-116) Aspartate Amino Transferase (AST) 26 U/L (13-40) Total Bilirubin 0.8 mg/dL (0.2-1.0) Assessment/Plan Assessment/Plan 88-year-old female with a known history of aortic valve surgery, mitral valve surgery, hypertension, hypothyroidism, chronic neck pain who was brought in by spine surgery for elective procedure. 1. Status post aortic valve replacement 2. Status post mitral valve replacement 3. Hypertension 4. Hypothyroidism 5. Status post C-spine surgery 6. Throat swelling/edema -keep NPO, continue dexamethasone 10 mg IV q.8 hours -repeat swallow evaluation every day -discharge planning once she eats. Plan discussed with: Patient My Orders Orders - EVELINA NUÑEZ MD Procedure Category Date Status Time Chest Portable XY 11/20/24 Resulted 09:39 * Swallow Request ST 11/20/24 Transmitted 09:39 Npo (Nothing By DIET 11/20/24 Transmitted Mouth) Diet Dinner *Consult CONS 11/20/24 Transmitted / 16:00 Complete Blood Count LAB 11/21/24 Verified 04:00 Date of Service: Nov 20, 2024 Billing Provider: EVELINA NUÑEZ MD Common Visit Codes: NOT BILLABLE EVELINA NUÑEZ MD Nov 20, 2024 16:19
[2024-11-20] MEDS: hydrALAZINE HCL 20 MG/ML VL IV PRN (17:44)
--- NOTE | 2024-11-20 23:06 | DVHINCON2 ---
Date of service: Nov 20, 2024 Referring Physician Milton Mancera MD Reason for Consultation Acute hypoxic respiratory failure, possible aspiration pneumonia, atelectasis History of Present Illness An 88-year-old woman with known past medical history of mitral and aortic valve replacement, hypertension, hypothyroidism and cervical spine stenosis who was brought in to ED on 11/18/24 by Orthopedic Spine Surgery for elective procedure. Patient is status post C3-4/C4-5/C5-6 spine surgery. She takes Coumadin, which was held 5 days prior to surgery. Pulmonary consultation is requested for evaluation and management due to acute hypoxic respiratory failure, possible a spiration pneumonia and atelectasis. Review of Systems: 14-point review of systems negative unless otherwise noted above. Past Medical History: History of aortic valve surgery Mitral valve surgery Hypertension Hypothyroidism Chronic neck pain/cervical stenosis Past Surgical History: Aortic valve surgery Mitral valve surgery C-spine surgery. Medications: Reviewed. Allergies: Iron and sulfa antibiotics. Family History: No family history of premature CAD. No family history of lung disorders. Social History: Nonsmoker. No alcohol or illicit drug use. Family History: Patient reports no known family medical history. Allergies: Coded Allergies: Iron (Verified Allergy, Unknown, 07/02/20) PO ONLY Sulfa Antibiotics (Verified Allergy, Unknown, 07/02/20) Home Meds Reported Medications Budesonide-Formoterol Fumarate (Budesonide/Formoterol Fum 160-4.5 Mcg/Act) 1 Aer Aer, 2 PUFF PO BID for 30 Days, #10.2 11/19/24 Famotidine (Famotidine) 20 Mg Tab, 20 MG PO PRN for 30 Days, MG 11/12/24 Acetaminophen (Acetaminophen) Unknown Strength Tab, PO PRN PRN for MILD PAIN for 30 Days, MG 0 Refills 11/12/24 Tramadol Hcl (Tramadol Hcl) 50 Mg Tab, 1 TAB PO DAILYP for 30 Days, #30 11/12/24 Alprazolam (Alprazolam) 0.5 Mg Tab, 1 TAB PO PRN, #30 TAB 11/12/24 Levothyroxine Sodium (Levothyroxine Sodium) 50 Mcg Tab, 1 TAB PO QAM for 90 Days, #90 11/12/24 Oxybutynin Chloride (Oxybutynin Chloride) 5 Mg Tab, 1 TAB PO DAILY for 90 Days, #90 11/12/24 Amiodarone Hcl (AMIODARONE HCL) 100 Mg Tab, 100 MG PO DAILY, TAB 11/12/24 Warfarin Sodium (Warfarin Sodium) 5 Mg Tab, 5 MG PO 4XWEEKLY for 30 Days, MG 07/02/20 Albuterol Sulfate (VENTOLIN MDI) 90 Mcg Ih, 2 PUFF IN PRN, INH 03/09/20 Multiple Vitamin (Multivitamins) Tab, 1 TAB PO DAILY, #90 TAB 3 Refills 03/09/20 Calcium Carbonate-Vitamin D (Calcium 600+D) +D Tab, 1 TAB PO DAILY, TAB 03/09/20 B-Complex W/ Folic Acid (B Complex) Tab, 1 TAB PO DAILY, TAB 03/09/20 Carvedilol (Carvedilol) 25 Mg Tab, 25 MG PO Q12HR for 30 Days, MG 03/09/20 Current Medications Current Medications Medications (Trade) Dose Ordered Sig/Kari Route PRN Reason Start Time Stop Time Status Last Admin Levothyroxine Sodium (Synthroid Tablet) 50 mcg QAM PO 11/20/24 07:00 11/20/24 06:10 Multivitamins (Mvi Tab) 1 tab DAILY PO 11/20/24 10:00 Tramadol HCl (Ultram) 50 mg DAILYP PO 11/20/24 10:00 Hold Amiodarone HCl (Cordarone Tablet) 100 mg DAILY PO 11/20/24 10:00 Multivit/Ca Carb/ B Cmplx/FA/Prenat (Nephro-Thierno Tablet) 1 tab DAILY PO 11/20/24 10:00 Calcium/Vitamin D (Oscal W/Vit D Tablet) 1 tab DAILY@0800 PO 11/20/24 08:00 Dexamethasone Sodium Phosphate (Decadron Injection) 10 mg Q8HR IV 11/20/24 14:00 11/23/24 14:00 11/20/24 20:51 Hydralazine HCl (Apresoline Injection) 10 mg Q4HP PRN IV SBP>150 11/20/24 17:15 11/20/24 17:44 Vital Signs Vital Signs Date Time Temp Pulse Resp B/P (MAP) Pulse Ox O2 Delivery O2 Flow Rate FiO2 11/20/24 21:00 97.9 90 17 161/81 (107) 91 97.9 11/20/24 20:00 Room Air* 0 21 Physical Exam Gen.: Patient lying in bed in no apparent distress. On supplemental oxygen. Head: Normocephalic, atraumatic. Eyes: EOMI/PERRLA. Ears: Normal hearing. Normal anatomy. Neck/trachea: Trachea midline, supple. Nose: Normal external anatomy. Mouth: Moist mucous membranes. Chest: Decreased air entry bilaterally. No wheezing or rhonchi. Cardiovascular: Positive S1, positive S2. Regular rate and rhythm. Abdomen: Positive bowel sounds in all 4 quadrants. Soft, non-tender, non- distended. : Deferred. Rectal: Deferred. Skin: Warm, dry. Intact. Extremities: 2+ radial pulses bilaterally. No lower extremity edema. Neuro: Awake, alert, oriented x3. No gross motor or sensory deficits. Cranial nerves II through XII intact. Gait not assessed. Labs/Diagnostic Data Labs Test 11/20/24 08:09 11/20/24 05:58 11/19/24 08:10 Range/Units Hemoglobin 10.6 #L 12.2-16.2 g/dL Hematocrit 31.7 #L 36.0-46.0 % Sodium Level 145 136-145 mmol/L Potassium Level 3.7 3.5-5.1 mmol/L Chloride Level 113 H 98-107 mmol/L Carbon Dioxide Level 26 20-31 mmol/L Anion Gap 6 5-15 Blood Urea Nitrogen 9 9-23 mg/dL Creatinine 1.02 0.550-1.02 mg/dL Glomerular Filtration Rate Calc 54 >90 mL/min BUN/Creatinine Ratio 8.8 L 10.0-20.0 Serum Glucose 102 74-106 mg/dL Calcium Level 9.1 8.7-10.4 mg/dL Total Bilirubin 0.8 0.2-1.0 mg/dL Aspartate Amino Transferase (AST) 26 13-40 U/L Alanine Aminotransferase (ALT) < 9 7-40 U/L Alkaline Phosphatase 50 46-116 U/L Total Protein 6.3 5.7-8.2 g/dL Albumin 4.1 3.2-4.8 g/dL White Blood Count 4.5 # 4.4-10.8 10^3/uL Red Blood Count 1.59 L 4.0-5.20 10^6/uL Mean Corpuscular Volume 144.9 #H 80.0-100.0 fL Mean Corpuscular Hemoglobin 34.0 H 28.0-32.0 pg Mean Corpuscular Hemoglobin Concent 23.5 L 32.0-36.0 g/dL Red Cell Distribution Width 17.3 H 11.8-14.3 % Platelet Count 48 L 140-450 10^3/uL Mean Platelet Volume 7.6 6.9-10.8 fL Neutrophils (%) (Auto) 37.0-80.0 % Lymphocytes (%) (Auto) 10.0-50.0 % Monocytes (%) (Auto) 0.0-12.0 % Basophils (%) (Auto) 0.0-2.0 % Neutrophils # (Auto) 1.6-8.6 10 ^3/uL Lymphocytes # (Auto) 0.4-5.4 10 ^3/uL Monocytes # (Auto) 0-1.3 10 ^3/uL Differential Total Cells Counted 100.0 100 Neutrophils % (Manual) 73 37.0-80.0 Band Neutrophils % (Manual) 3 Lymphocytes % (Manual) 24 10.0-50.0 Monocytes % (Manual) 0 0-12 Eosinophils % (Manual) 0 0-7 Basophils % (Manual) 0 0.0-2.0 Metamyelocytes % (manual) 0 Myelocytes % (Manual) 0 Promyelocytes % (Manual) 0 Blast Cells % (Manual) 0 Reactive Lymphocytes 0 Platelet Estimate Decreased Macrocytosis Marked Eosinophils (%) (Auto) 0.0 0.0-7.0 % Eosinophils # (Auto) 0 0-0.8 10 ^3/uL Basophils # (Auto) 0 0-0.2 10 ^3/uL Nucleated Red Blood Cells 0.0 % Prothrombin Time 13.6 H 9.3-11.8 sec Prothrombin Time INR 1.32 H 0.9-1.15 Activated Partial Thromboplast Time 31.6 24.5-34.5 SEC Assessment Impression: Acute hypoxic respiratory failure Dependence on supplemental oxygen Possible aspiration pneumonia Atelectasis S/p cervical surgery, C3-4/C4-5/C5-6 Plan: Supplemental oxygen 2 LPM NC Titrate to keep O2 sats above 92%. Taper O2 as tolerated. Continue bronchodilators PRN. Continue antibiotics Incentive spirometry Head of bed elevation Aspiration precautions. Patient failed swallow eval. Follow up Surgery recommendations Monitor renal function. Monitor electrolytes. Supplement as necessary. Monitor ins and outs. DVT prophylaxis. Prognosis: Poor given patient's multiple co-morbidities. Rest of plan per hospitalist and other consultants. Thank you, Dr. Mancera, for allowing me to participate in this patient's care. Further recommendations will depend on the patient's clinical course. Please do not hesitate to contact me if you have any questions or concerns. This medical document was created using an electronic medical record system with [employer] dictation system. Although these documentations are being carefully reviewed, there may still be some phonetic and typographical changes. The errors are purely typographical, due to imperfection on the software program, and do not reflect any compromise in the patient's medical care. Plan discussed with: Patient, Other (CHRIS Nieto/Dr. Mancera) ELIZABET ALANIZ MD Nov 20, 2024 23:06
[2024-11-21] VITALS (18 sets, daily range): BP systolic 110–160; BP diastolic 63–102; PULSE 65–111; RESP 15–20; TEMP 97.5–98.6; O2SAT 94–99
[2024-11-21 07:05] LABS: Basophils # (auto) 0 10 ^3/uL (0-0.2); Basophils % (auto) 0.1 % (0.0-2.0); Eosinophils # (auto) 0 10 ^3/uL (0-0.8); Hematocrit 31.5 % (36.0-46.0); Hemoglobin 10.4 g/dL (12.2-16.2); Lymphocytes # (auto) 1.6 10 ^3/uL (0.4-5.4); Lymphocytes % (auto) 17.9 % (10.0-50.0); Mean Corpuscular Hemoglobin 33.1 pg (28.0-32.0); Mean Corpuscular Hgb Conc. 33.1 g/dL (32.0-36.0); Mean Corpuscular Volume 100.1 fL (80.0-100.0); Monocytes # (auto) 0.2 10 ^3/uL (0-1.3); Monocytes % (auto) 2.4 % (0.0-12.0); Neutrophils # (auto) 6.9 10 ^3/uL (1.6-8.6); Neutrophils % (auto) 79.6 % (37.0-80.0); Platelet Count (auto) 99 10^3/uL (140-450); Red Blood Cells 3.15 10^6/uL (4.0-5.20); Red Cell Distribution Width 14.7 % (11.8-14.3); White Blood Cell 8.7 10^3/uL (4.4-10.8)
--- NOTE | 2024-11-21 17:23 | DVHDS2 ---
Discharge Summary Date of Admission Nov 18, 2024 at 08:23 Date of Discharge: Nov 21, 2024 Labs/Diagnostic Data: Laboratory Results Test 11/21/24 05:43 11/20/24 08:09 11/20/24 05:58 11/19/24 08:10 White Blood Count 8.7 10^3/uL (4.4-10.8) Red Blood Count 3.15 10^6/uL (4.0-5.20) Hemoglobin 10.4 g/dL (12.2-16.2) Hematocrit 31.5 % (36.0-46.0) Mean Corpuscular Volume 100.1 fL (80.0-100.0) Mean Corpuscular Hemoglobin 33.1 pg (28.0-32.0) Mean Corpuscular Hemoglobin Concent 33.1 g/dL (32.0-36.0) Red Cell Distribution Width 14.7 % (11.8-14.3) Platelet Count 99 10^3/uL (140-450) Mean Platelet Volume 7.8 fL (6.9-10.8) Neutrophils (%) (Auto) 79.6 % (37.0-80.0) Lymphocytes (%) (Auto) 17.9 % (10.0-50.0) Monocytes (%) (Auto) 2.4 % (0.0-12.0) Eosinophils (%) (Auto) 0.0 % (0.0-7.0) Basophils (%) (Auto) 0.1 % (0.0-2.0) Neutrophils # (Auto) 6.9 10 ^3/uL (1.6-8.6) Lymphocytes # (Auto) 1.6 10 ^3/uL (0.4-5.4) Monocytes # (Auto) 0.2 10 ^3/uL (0-1.3) Eosinophils # (Auto) 0 10 ^3/uL (0-0.8) Basophils # (Auto) 0 10 ^3/uL (0-0.2) Nucleated Red Blood Cells 0.0 % Sodium Level 145 mmol/L (136-145) Potassium Level 3.7 mmol/L (3.5-5.1) Chloride Level 113 mmol/L (98-107) Carbon Dioxide Level 26 mmol/L (20-31) Anion Gap 6 (5-15) Blood Urea Nitrogen 9 mg/dL (9-23) Creatinine 1.02 mg/dL (0.550-1.02) Glomerular Filtration Rate Calc 54 mL/min (>90) BUN/Creatinine Ratio 8.8 (10.0-20.0) Serum Glucose 102 mg/dL (74-106) Calcium Level 9.1 mg/dL (8.7-10.4) Total Bilirubin 0.8 mg/dL (0.2-1.0) Aspartate Amino Transferase (AST) 26 U/L (13-40) Alanine Aminotransferase (ALT) < 9 U/L (7-40) Alkaline Phosphatase 50 U/L (46-116) Total Protein 6.3 g/dL (5.7-8.2) Albumin 4.1 g/dL (3.2-4.8) Differential Total Cells Counted 100.0 (100) Neutrophils % (Manual) 73 (37.0-80.0) Band Neutrophils % (Manual) 3 Lymphocytes % (Manual) 24 (10.0-50.0) Monocytes % (Manual) 0 (0-12) Eosinophils % (Manual) 0 (0-7) Basophils % (Manual) 0 (0.0-2.0) Metamyelocytes % (manual) 0 Myelocytes % (Manual) 0 Promyelocytes % (Manual) 0 Blast Cells % (Manual) 0 Reactive Lymphocytes 0 Platelet Estimate Decreased Macrocytosis Marked Prothrombin Time 13.6 sec (9.3-11.8) Prothrombin Time INR 1.32 (0.9-1.15) Activated Partial Thromboplast Time 31.6 SEC (24.5-34.5) Other Laboratory Tests 11/21/24 05:43 11/20/24 08:09 Brief Hx & Hospital Course: 88-year-old female with a known history of aortic valve surgery, mitral valve surgery, hypertension, hypothyroidism, chronic neck pain who was brought in by spine surgery for elective procedure. Patient underwent C-spine surgery. Patient does have known history of aortic valve and mitral valve replacement. Spine surgery wants to hold the blood thinner for another week. Patient was explained that she needs to follow up with the PCP for resumption of warfarin. Patient currently waiting for the C-collar once the same [facility] Patient's hospital course was eventful for failed swallow evaluation because of the neck pain and neck edema, status post dexamethasone few doses. Currently patient is tolerating diet. Patient has a sinus tachycardia beta parrish and amiodarone has been resumed. Condition at Discharge: Stable Final Diagnosis/Problems List 88-year-old female with a known history of aortic valve surgery, mitral valve surgery, hypertension, hypothyroidism, chronic neck pain who was brought in by spine surgery for elective procedure. 1. Status post aortic valve replacement 2. Status post mitral valve replacement 3. Hypertension 4. Hypothyroidism 5. Status post C-spine surgery 6. Throat swelling/edema, resolved currently tolerating diet Discharge Disposition: [facility] Discharge Will this Physician continue t: No Discharge Instruct/Medications Diet: Cardiac 2g Na,low cholest Activity: No Restrictions, As Tolerated Follow Up/Referral: Follow up with the PCP and spine surgery in 1-2 weeks Follow up with the Cardiology for resumption of Coumadin Medications: As reconciled Discharge Statement: "Patient was advised to return to the ER or call 911 if any headaches, dizziness, shortness of breath, chest pain, abdominal pain, bleeding, fevers, or worsening of medical condition. Patient was counseled about treatment plan, medications, possible side effects, patientverbalized understanding. All questions were answered to the best of my ability. This discharge took greater then 30 minutes in planning, reviewing documentation, counseling the patient, and discussing with other team members." ASSESSMENT ASSESSMENT Assessment 88-year-old female with a known history of aortic valve surgery, mitral valve surgery, hypertension, hypothyroidism, chronic neck pain who was brought in by spine surgery for elective procedure. 1. Status post aortic valve replacement 2. Status post mitral valve replacement 3. Hypertension 4. Hypothyroidism 5. Status post C-spine surgery 6. Throat swelling/edema, resolved currently tolerating diet Date of Service: Nov 21, 2024 Billing Provider: EVELINA NUÑEZ MD Common Visit Codes: NOT BILLABLE EVELINA NUÑEZ MD Nov 21, 2024 17:23
[2024-11-22] VITALS (14 sets, daily range): BP systolic 131–161; BP diastolic 71–96; PULSE 85–115; RESP 16–20; TEMP 97.6–98.2; O2SAT 93–98
--- NOTE | 2024-11-22 09:10 | DVHPN2 ---
Progress Note - Dictate Date Seen: Nov 21, 2024 Medical Necessity Reason Pt with a Central, PICC or Fol: Yes The following are medically ne: Ramirez Catheter Reason for ramirez catheter: Strict I&O Subjective Patient seen and examined at bedside. Remains on supplemental oxygen Overnight events reviewed. vital signs Vital Sign Date Time Temp Pulse Resp B/P (MAP) Pulse Ox O2 Delivery O2 Flow Rate FiO2 11/22/24 08:34 98.2 100 17 153/88 (109) 95 98.2 11/22/24 07:21 Nasal Cannula 2.0 11/22/24 07:21 28 Total Intake and Output 11/21/24 11/21/24 11/22/24 15:00 23:00 07:00 Intake Total 200 ml 0 ml Output Total 550 ml 500 ml Balance -350 ml -500 ml medications Current Medications Medications Dose Ordered Sig/Kari Route Start Time Stop Time Status Last Admin Dose Admin Dextrose/Sodium Chloride 1,000 ml @ 100 mls/hr Q10H IV 11/18/24 08:30 11/21/24 06:20 100 MLS/HR Ondansetron HCl 4 mg Q4HP PRN IV 11/18/24 08:30 Acetaminophen 650 mg Q6HP PRN PO 11/18/24 08:30 11/19/24 22:49 650 MG Acetaminophen/ Hydrocodone Bitart 1 tab Q6HP PRN PO 11/18/24 08:30 Morphine Sulfate 1 mg Q4HP PRN IV 11/18/24 08:30 11/21/24 12:19 1 MG Cyclobenzaprine HCl 10 mg TID PO 11/18/24 14:00 11/22/24 05:31 10 MG Docusate Sodium 100 mg BID PO 11/18/24 10:00 11/19/24 22:33 100 MG Nitroglycerin 0.4 mg Q5MINP PRN SL 11/18/24 08:30 Morphine Sulfate 2 mg Q30M PRN IV 11/18/24 08:30 Oxycodone HCl 10 mg ONCE PRN PO 11/18/24 11:45 Throat Lozenges 1 chetna Q2HP PRN MT 11/19/24 07:15 11/19/24 09:02 1 CHETNA Alprazolam 0.5 mg PRN PO 11/19/24 14:45 Hold Famotidine 20 mg PRN PO 11/19/24 14:45 Hold Levothyroxine Sodium 50 mcg QAM PO 11/20/24 07:00 11/22/24 05:31 50 MCG Multivitamins 1 tab DAILY PO 11/20/24 10:00 Oxybutynin Chloride 2.5 mg BID PO 11/19/24 22:00 11/21/24 21:17 2.5 MG Tramadol HCl 50 mg DAILYP PO 11/20/24 10:00 Hold Amiodarone HCl 100 mg DAILY PO 11/20/24 10:00 11/21/24 16:35 100 MG Multivit/Ca Carb/ B Cmplx/FA/Prenat 1 tab DAILY PO 11/20/24 10:00 Calcium/Vitamin D 1 tab DAILY@0800 PO 11/20/24 08:00 Carvedilol 25 mg Q12HR PO 11/19/24 22:00 11/21/24 21:16 25 MG Albuterol 2.5 mg Q6HR NEB 11/19/24 18:00 11/22/24 07:21 2.5 MG Budesonide 0.5 mg BID NEB 11/19/24 22:00 11/22/24 07:21 0.5 MG Dexamethasone Sodium Phosphate 10 mg Q8HR IV 11/20/24 14:00 11/23/24 14:00 11/22/24 05:31 10 MG Hydralazine HCl 10 mg Q4HP PRN IV 11/20/24 17:15 11/20/24 17:44 10 MG objective Gen.: Patient lying in bed in no apparent distress. On supplemental oxygen. Head: Normocephalic, atraumatic. Eyes: EOMI/PERRLA. Ears: Normal hearing. Normal anatomy. Neck/trachea: Trachea midline, supple. Nose: Normal external anatomy. Mouth: Moist mucous membranes. Chest: Decreased air entry bilaterally. No wheezing or rhonchi. Cardiovascular: Positive S1, positive S2. Regular rate and rhythm. Abdomen: Positive bowel sounds in all 4 quadrants. Soft, non-tender, non- distended. : Deferred. Rectal: Deferred. Skin: Warm, dry. Intact. Extremities: 2+ radial pulses bilaterally. No lower extremity edema. Neuro: Awake, alert, oriented x3. No gross motor or sensory deficits. Cranial nerves II through XII intact. Gait not assessed. laboratory and microbiology Laboratory Tests 11/21/24 05:43 11/20/24 08:09 Test 11/20/24 08:09 Range/Units Serum Glucose 102 74-106 mg/dL Assessment/Plan Impression: Acute hypoxic respiratory failure Dependence on supplemental oxygen Possible aspiration pneumonia Atelectasis S/p cervical surgery, C3-4/C4-5/C5-6 Events: Remains on supplemental oxygen, 2 LPM NC Taper O2 as tolerated Clear breath sounds Continue bronchodilators/Pulmicort Continue Decadron Incentive spirometry Amiodarone PO Monitor renal function. Monitor electrolytes. Supplement as necessary. Monitor ins and outs. Ramirez cath w/ good urine output Denies pain. Labs and imaging reviewed. Rest of plan as noted below. Plan: Supplemental oxygen Titrate to keep O2 sats above 92%. Continue bronchodilators Incentive spirometry Head of bed elevation Aspiration precautions. Surgery recommendations appreciated Monitor renal function. Monitor electrolytes. Supplement as necessary. Monitor ins and outs. DVT prophylaxis. Prognosis: Poor given patient's multiple co-morbidities. Rest of plan per hospitalist and other consultants. Thank you, Dr. Mancera, for allowing me to participate in this patient's care. Further recommendations will depend on the patient's clinical course. Please do not hesitate to contact me if you have any questions or concerns. This medical document was created using an electronic medical record system with [employer] dictation system. Although these documentations are being carefully reviewed, there may still be some phonetic and typographical changes. The errors are purely typographical, due to imperfection on the software program, and do not reflect any compromise in the patient's medical care. Dietary Evaluation Review Comments: 1. Obed 1 pk BID 2. Advance to cardiac diet + consistency approved by SP 3. Continue current plan of care Expected Outcomes/Goals: Pt will meet >75% estimated needs Fu 5-7 days Plan discussed with: Patient, Other (CHRIS Grimes) ELIZABET ALANIZ MD Nov 22, 2024 09:10
[2024-11-22] MEDS ORDERED: ALPRAZolam 0.5 MG TAB PO PRN (13:30)
[2024-11-22] MEDS ORDERED: traMADol HCL 50 MG TAB PO PRN (13:30)
[2024-11-22] MEDS: LACTULOSE 20Gm/30ML SOLN PO SCH (14:40)
[2024-11-22] MEDS ORDERED: AMIODARONE HCL 200 MG TAB PO ONE (18:15)
[2024-11-22] MEDS: AMIODARONE HCL 200 MG TAB PO ONE (18:25)
--- NOTE | 2024-11-22 19:14 | DVHPN2 ---
Progress Note - Dictate Date Seen: Nov 22, 2024 Medical Necessity Reason Pt with a Central, PICC or Fol: Yes The following are medically ne: Ramirez Catheter Reason for ramirez catheter: Strict I&O Subjective Patient seen and examined at bedside. Currently on room air Overnight events reviewed. vital signs Vital Sign Date Time Temp Pulse Resp B/P (MAP) Pulse Ox O2 Delivery O2 Flow Rate FiO2 11/22/24 18:47 111 20 96 11/22/24 18:40 Nasal Cannula 2.0 11/22/24 18:40 28 11/22/24 16:54 97.9 160/80 (106) 97.9 Total Intake and Output 11/21/24 11/21/24 11/22/24 15:00 23:00 07:00 Intake Total 200 ml 0 ml Output Total 550 ml 500 ml Balance -350 ml -500 ml medications Current Medications Medications Dose Ordered Sig/Kari Route Start Time Stop Time Status Last Admin Dose Admin Ondansetron HCl 4 mg Q4HP PRN IV 11/18/24 08:30 Acetaminophen 650 mg Q6HP PRN PO 11/18/24 08:30 11/22/24 17:47 650 MG Acetaminophen/ Hydrocodone Bitart 1 tab Q6HP PRN PO 11/18/24 08:30 Hold Morphine Sulfate 1 mg Q4HP PRN IV 11/18/24 08:30 11/21/24 12:19 1 MG Cyclobenzaprine HCl 10 mg TID PO 11/18/24 14:00 11/22/24 05:31 10 MG Docusate Sodium 100 mg BID PO 11/18/24 10:00 11/19/24 22:33 100 MG Nitroglycerin 0.4 mg Q5MINP PRN SL 11/18/24 08:30 Morphine Sulfate 2 mg Q30M PRN IV 11/18/24 08:30 Oxycodone HCl 10 mg ONCE PRN PO 11/18/24 11:45 Throat Lozenges 1 chetna Q2HP PRN MT 11/19/24 07:15 11/19/24 09:02 1 CHETNA Levothyroxine Sodium 50 mcg QAM PO 11/20/24 07:00 11/22/24 05:31 50 MCG Multivitamins 1 tab DAILY PO 11/20/24 10:00 Oxybutynin Chloride 2.5 mg BID PO 11/19/24 22:00 11/22/24 09:32 2.5 MG Multivit/Ca Carb/ B Cmplx/FA/Prenat 1 tab DAILY PO 11/20/24 10:00 11/22/24 09:30 1 TAB Calcium/Vitamin D 1 tab DAILY@0800 PO 11/20/24 08:00 11/22/24 09:28 1 TAB Carvedilol 25 mg Q12HR PO 11/19/24 22:00 11/22/24 09:36 25 MG Albuterol 2.5 mg Q6HR NEB 11/19/24 18:00 11/22/24 18:40 2.5 MG Budesonide 0.5 mg BID NEB 11/19/24 22:00 11/22/24 18:40 0.5 MG Dexamethasone Sodium Phosphate 10 mg Q8HR IV 11/20/24 14:00 11/23/24 14:00 11/22/24 14:44 10 MG Hydralazine HCl 10 mg Q4HP PRN IV 11/20/24 17:15 11/22/24 14:43 10 MG Lactulose 30 ml TID PO 11/22/24 14:00 11/22/24 14:40 30 ML Famotidine 20 mg BID PO 11/22/24 22:00 Tramadol HCl 50 mg Q8HP PRN PO 11/22/24 13:30 Alprazolam 0.5 mg BIDP PRN PO 11/22/24 13:30 Amiodarone HCl 100 mg BID PO 11/23/24 10:00 Cancel Amiodarone HCl 100 mg BID PO 11/23/24 10:00 objective Gen.: Patient lying in bed in no apparent distress. On room air. Head: Normocephalic, atraumatic. Eyes: EOMI/PERRLA. Ears: Normal hearing. Normal anatomy. Neck/trachea: Trachea midline, supple. Nose: Normal external anatomy. Mouth: Moist mucous membranes. Chest: Decreased air entry bilaterally. No wheezing or rhonchi. Cardiovascular: Positive S1, positive S2. Regular rate and rhythm. Abdomen: Positive bowel sounds in all 4 quadrants. Soft, non-tender, non- distended. : Deferred. Rectal: Deferred. Skin: Warm, dry. Intact. Extremities: 2+ radial pulses bilaterally. No lower extremity edema. Neuro: Awake, alert, oriented x3. No gross motor or sensory deficits. Cranial nerves II through XII intact. Gait not assessed. laboratory and microbiology Laboratory Tests 11/21/24 05:43 11/20/24 08:09 Test 11/20/24 08:09 Range/Units Serum Glucose 102 74-106 mg/dL Assessment/Plan Impression: Acute hypoxic respiratory failure Dependence on supplemental oxygen Possible aspiration pneumonia Atelectasis S/p cervical surgery, C3-4/C4-5/C5-6 Events: Currently on room air Supplemental oxygen PRN Patient is ambulating with no distress. Continue bronchodilators/Pulmicort Continue Decadron Incentive spirometry Amiodarone PO Monitor renal function. Monitor electrolytes. Supplement as necessary. Monitor ins and outs. Ramirez cath w/ good urine output Denies pain. Labs and imaging reviewed. Rest of plan as noted below. Plan: Supplemental oxygen PRN Titrate to keep O2 sats above 92%. Continue bronchodilators Incentive spirometry Head of bed elevation Aspiration precautions. Surgery recommendations appreciated Monitor renal function. Monitor electrolytes. Supplement as necessary. Monitor ins and outs. DVT prophylaxis. Prognosis: Guarded given patient's multiple co-morbidities. Rest of plan per hospitalist and other consultants. Thank you, Dr. Mancera, for allowing me to participate in this patient's care. Further recommendations will depend on the patient's clinical course. Please do not hesitate to contact me if you have any questions or concerns. This medical document was created using an electronic medical record system with [employer] dictation system. Although these documentations are being carefully reviewed, there may still be some phonetic and typographical changes. The errors are purely typographical, due to imperfection on the software program, and do not reflect any compromise in the patient's medical care. Dietary Evaluation Review Comments: 1. Obed 1 pk BID 2. Advance to cardiac diet + consistency approved by SP 3. Continue current plan of care Expected Outcomes/Goals: Pt will meet >75% estimated needs Fu 5-7 days Plan discussed with: Patient, Other (CHRIS Tang) ELIZABET ALANIZ MD Nov 22, 2024 19:13
[2024-11-22] MEDS: FAMOTIDINE 20 MG TAB PO SCH (21:54)
[2024-11-23] VITALS (14 sets, daily range): BP systolic 101–164; BP diastolic 66–105; PULSE 100–120; RESP 14–20; TEMP 97.6–98; O2SAT 93–100
[2024-11-23] MEDS: AMIODARONE HCL 200 MG TAB PO SCH (09:05)
[2024-11-23] MEDS ORDERED: AMIODARONE HCL 200 MG TAB PO SCH (10:00)
--- NOTE | 2024-11-23 18:58 | DVHPN2 ---
Progress Note - Dictate Date Seen: Nov 23, 2024 Medical Necessity Reason Pt with a Central, PICC or Fol: Yes The following are medically ne: Ramirez Catheter Reason for ramirez catheter: Strict I&O Subjective Patient seen and examined at bedside. Breathing comfortably on room air Overnight events reviewed. vital signs Vital Sign Date Time Temp Pulse Resp B/P (MAP) Pulse Ox O2 Delivery O2 Flow Rate FiO2 11/23/24 12:58 98.0 110 17 141/100 (114) 94 98.0 11/23/24 11:19 Room Air 0.0 11/23/24 11:19 21 Total Intake and Output 11/22/24 11/22/24 11/23/24 15:00 23:00 07:00 Intake Total 800 ml 210 ml Output Total 600 ml 500 ml Balance 200 ml -290 ml medications Current Medications Medications Dose Ordered Sig/Kari Route Start Time Stop Time Status Last Admin Dose Admin Amiodarone HCl 100 mg BID PO 11/23/24 10:00 Cancel objective Gen.: Patient lying in bed in no apparent distress. On room air. Head: Normocephalic, atraumatic. Eyes: EOMI/PERRLA. Ears: Normal hearing. Normal anatomy. Neck/trachea: Trachea midline, supple. Nose: Normal external anatomy. Mouth: Moist mucous membranes. Chest: Decreased air entry bilaterally. No wheezing or rhonchi. Cardiovascular: Positive S1, positive S2. Regular rate and rhythm. Abdomen: Positive bowel sounds in all 4 quadrants. Soft, non-tender, non- distended. : Deferred. Rectal: Deferred. Skin: Warm, dry. Intact. Extremities: 2+ radial pulses bilaterally. No lower extremity edema. Neuro: Awake, alert, oriented x3. No gross motor or sensory deficits. Cranial nerves II through XII intact. Gait not assessed. laboratory and microbiology Laboratory Tests 11/21/24 05:43 11/20/24 08:09 Test 11/20/24 08:09 Range/Units Serum Glucose 102 74-106 mg/dL Assessment/Plan Impression: Acute hypoxic respiratory failure Dependence on supplemental oxygen Possible aspiration pneumonia Atelectasis S/p cervical surgery, C3-4/C4-5/C5-6 Events: Remains on room air Supplemental oxygen PRN Patient is ambulating with no distress. No new complaints. Plan to transfer to rehab. Continue bronchodilators/Pulmicort Continue Decadron Incentive spirometry Amiodarone PO Monitor renal function. Monitor electrolytes. Supplement as necessary. Monitor ins and outs. Ramirez cath w/ good urine output Denies pain. Labs and imaging reviewed. Rest of plan as noted below. Plan: Supplemental oxygen PRN Titrate to keep O2 sats above 92%. Continue bronchodilators Incentive spirometry Head of bed elevation Aspiration precautions. Surgery recommendations appreciated Monitor renal function. Monitor electrolytes. Supplement as necessary. Monitor ins and outs. DVT prophylaxis. Prognosis: Guarded given patient's multiple co-morbidities. Rest of plan per hospitalist and other consultants. Thank you, Dr. Mancera, for allowing me to participate in this patient's care. Further recommendations will depend on the patient's clinical course. Please do not hesitate to contact me if you have any questions or concerns. This medical document was created using an electronic medical record system with [employer] dictation system. Although these documentations are being carefully reviewed, there may still be some phonetic and typographical changes. The errors are purely typographical, due to imperfection on the software program, and do not reflect any compromise in the patient's medical care. Dietary Evaluation Review Comments: 1. Obed 1 pk BID 2. Advance to cardiac diet + consistency approved by SP 3. Continue current plan of care Expected Outcomes/Goals: Pt will meet >75% estimated needs Fu 5-7 days Plan discussed with: Patient, Other (RN) ELIZABET ALANIZ MD Nov 23, 2024 18:58
== END 2024-11-23 16:05 | DRG 472 ==
LOC: SUR 06:05 → OVERFLOW 08:23 → TELE-WESTW 14:38
PROVIDERS: ADMIT Internal Medicine; ATTEND Internal Medicine
PROC: 01N10ZZ Release Cervical Nerve, Open Approach (ICD-10-PCS; 2024-11-18)
PROC: 00NW0ZZ Release Cervical Spinal Cord, Open Approach (ICD-10-PCS; 2024-11-18)
PROC: 0RB30ZZ Excision of Cervical Vertebral Disc, Open Approach (ICD-10-PCS; 2024-11-18)
PROC: 0RG20A0 Fusion of 2 or more Cervical Vertebral Joints with Interbody Fusion Device, Anterior Approach, Anterior Column, Open Approach (ICD-10-PCS; principal; 2024-11-18 08:16)
DX: M48.02 Spinal stenosis, cervical region (principal); J96.10 Chronic respiratory failure, unspecified whether with hypoxia or hypercapnia; J98.11 Atelectasis; M50.01 Cervical disc disorder with myelopathy, high cervical region; M50.021 Cervical disc disorder at C4-C5 level with myelopathy; M50.022 Cervical disc disorder at C5-C6 level with myelopathy; I10 Essential (primary) hypertension; E03.9 Hypothyroidism, unspecified; G89.29 Other chronic pain; M50.11 Cervical disc disorder with radiculopathy, high cervical region; M50.121 Cervical disc disorder at C4-C5 level with radiculopathy; M50.122 Cervical disc disorder at C5-C6 level with radiculopathy; Z95.2 Presence of prosthetic heart valve; Z88.2 Allergy status to sulfonamides; Z88.8 Allergy status to other drugs, medicaments and biological substances; Z91.041 Radiographic dye allergy status; Z79.1 Long term (current) use of non-steroidal anti-inflammatories (NSAID); Z79.899 Other long term (current) drug therapy; Z79.01 Long term (current) use of anticoagulants; Z99.81 Dependence on supplemental oxygen
CPT/HCPCS: 36415; 70360; 71045; 72040; 76000; 80053; 85007; 85014; 85018; 85025; 85027; 85610; 85730; 86850; 86900; 86901; 92507; 92610; 94640; 97110; 97116; 97163; 97530; G0378; J0131; J1100; J2003; J2405; J2704; J7042

== ENCOUNTER 2025-05-28 21:33 | Inpatient (IN) | payer OTHER ==
[~2025-05-28] VITALS: Ht 160 cm; Wt 63.3 kg
[~2025-05-28 21:33] MED LIST changes: -WARF-66 PO
[2025-05-28] MEDS ORDERED: FUROSEMIDE 40 MG/4 ML VIAL IV ONE (22:15)
--- NOTE | 2025-05-28 22:19 | ED.PDOC ---
HPI Comments 89-year-old female presented to the ER for the evaluation of shortness of breaths and lower extremity edema for the past couple of weeks. Patient reports that she has shortness of breaths on minimal exertion, along with productive cough for the past 2 weeks, also reports lower extremity swelling for similar duration, she took water pills which did not relieve her swelling or discomfort. Denies orthopnea or PND, sleeps on her side with 1 pillow. Denies fever, chills, nausea, vomiting, constipation. Past medical history: Aortic valve replacement, mitral valve replacement, pacemaker placement, hypertension, hypothyroidism Search [employer] Analyst Dr. Kelly Patient seen and examined has decreased bilateral air entry, with 2+ pitting e kamille and petechial rash bilateral shins. Attestation note: Dr. Garrison: I was the supervising attending for this ED encounter. Please see the resident's notes. I was available for questions and consultations. Differential diagnosis: As far as the dyspnea. DDx include ACS, unstable angina, anxiety, PE, pneumothroax, neoplasm, cardiac ischemia, COPD, asthma, CHF, pleural effusion, tobacco abuse, pneumonia, hypoxia, hypercapnia, anemia., infection/sepsis., pulmonary edema. Asthma, Cardiac tamponade, infection. As far as the leg swelling: Leg swelling Ddx include but not limited to DVT, ischemic limb, pitting edema, volume overl oad, CHF, cellulitis, hematoma, compartment syndrome, dependent edema, venous stasis. Necrotizing fasciitis, abscess, infestation. MDM: MDM: patient presented with the above HPI.---dyspnea and leg swelling---workup was initiated. patient was found with the above mentioned diagnosis. the following medications were ordered: please refer to order lists of meds and tests obtained by myself Dr. Garrison. Patient ED course and VS have been stabilized. Patient has been reassessed in the ED and remained in a stable condition. Pertinent incidental findings were discussed with the patient and/or family. Patient/family voices understanding and is agreeable with plan. Patient has been observed in the ED adequate length of time to insure improvement/stability. Escalation of care considered: Consideration of escalation to observation or admission Patient was ADMITTED to the medicine team for further evaluation and treatment of their presentation. All the reports of any imaging studies that were ordered by myself were reviewed by myself. Chief Complaint: Shortness of Breath Time Seen by MD: 21:46 Reviewed Notes: Nurses Notes, Allergies Allergies: Coded Allergies: Iron (Verified Allergy, Unknown, 07/02/20) PO ONLY Sulfa Antibiotics (Verified Allergy, Unknown, 07/02/20) Home Meds Reported Medications Budesonide-Formoterol Fumarate (Budesonide/Formoterol Fum 160-4.5 Mcg/Act) 1 Aer Aer, 2 PUFF PO BID for 30 Days, #10.2 11/19/24 Famotidine (Famotidine) 20 Mg Tab, 20 MG PO PRN for 30 Days, MG 11/12/24 Acetaminophen (Acetaminophen) Unknown Strength Tab, PO PRN PRN for MILD PAIN for 30 Days, MG 0 Refills 11/12/24 Tramadol Hcl (Tramadol Hcl) 50 Mg Tab, 1 TAB PO DAILYP for 30 Days, #30 11/12/24 Alprazolam (Alprazolam) 0.5 Mg Tab, 1 TAB PO PRN, #30 TAB 11/12/24 Levothyroxine Sodium (Levothyroxine Sodium) 50 Mcg Tab, 1 TAB PO QAM for 90 Days, #90 11/12/24 Oxybutynin Chloride (Oxybutynin Chloride) 5 Mg Tab, 1 TAB PO DAILY for 90 Days, #90 11/12/24 Amiodarone Hcl (AMIODARONE HCL) 100 Mg Tab, 100 MG PO DAILY, TAB 11/12/24 Albuterol Sulfate (VENTOLIN MDI) 90 Mcg Ih, 2 PUFF IN PRN, INH 03/09/20 Multiple Vitamin (Multivitamins) Tab, 1 TAB PO DAILY, #90 TAB 3 Refills 03/09/20 Calcium Carbonate-Vitamin D (Calcium 600+D) +D Tab, 1 TAB PO DAILY, TAB 03/09/20 B-Complex W/ Folic Acid (B Complex) Tab, 1 TAB PO DAILY, TAB 03/09/20 Carvedilol (Carvedilol) 25 Mg Tab, 25 MG PO Q12HR for 30 Days, MG 03/09/20 Information Source: Patient Mode of Arrival: Ambulatory Constitutional: denies: chills, diaphoresis, fatigue, fever, malaise, sweats, weakness, others EENTM: denies: blurred vision, double vision, ear bleeding, ear discharge, ear drainage, ear pain, ear ringing, eye pain, eye redness, hearing loss, mouth pain, mouth swelling, nasal discharge, nose bleeding, nose congestion, nose pain, photophobia, tearing, throat pain, throat swelling, voice changes, others Respiratory: reports: cough, SOB with excertion Cardiovascular: reports: edema Gastrointestinal: denies: abdomen distended, abdominal pain, blood streaked bowels, constipated, diarrhea, dysphagia, difficulty swallowing, hematemesis, melena, nausea, poor appetite, poor fluid intake, rectal bleeding, rectal pain, vomiting, others Genitourinary: denies: abnormal vagina bleeding, burning, dyspareunia, dysuria, flank pain, frequency, hematuria, incontinence, pain, , vagina discharge, urgency, others Neurological: denies: dizziness, fainting, headache, left sided numbness, left sided weakness, numbness, paresthesia, pre-existing deficit, right sided numbness, right sided weakness, seizure, speech problems, tingling, tremors, weakness, others Musculoskeletal: denies: back pain, gout, joint pain, joint swelling, muscle pain, muscle stiffness, neck pain, others Integumetry: denies: bruises, change in color, change in hair/nails, dryness, laceration, lesions, lumps, rash, wounds, others Allergic/Immunocompromised: denies: Difficulty Healing, Frequent Infections, Hives, Itching, others Hematologic/Lymphatic: denies: anemia, blood clots, easy bleeding, easy bruising, swollen glands, others Endocrine: denies: excessive hunger, excessive sweating, excessive thirst, excessive urination, flushing, intolerance to cold, intolerance to heat, unexplained weight gain, unexplained weight loss, others Psychiatric: denies: anxiety, bipolar disorder, depression, hopeless, panic disorder, schizophrenia, sleepless, suicidal, others Physical Exam General Appearance: Mild Distress HEENT: NOT DONE Neck: NOT DONE Respiratory: Decreased Breath Sounds, No Accessory Muscle Use, No Respiratory Distress Cardiovascular: Regular Rate/Rhythm Breast Exam: Deferred Gastrointestinal: Non Tender, Normal Bowel Sounds Genitalia: Deferred Pelvic: Deferred Rectal: Deferred Extremities: Leg edema (2+ pitting edema with overlying petechial rash on bilateral ankles) Neurologic: Normal Mood, NOT DONE Cerebellar Function: NOT DONE Reflexes: NOT DONE Skin: Rash (Petechial rash bilateral leblanc), Warm Lymphatic: NOT DONE Was a procedure done? Was a procedure done?: No CP Differential Dx Differential Diagnosis: Anxiety / Panic Attack, Electrolyte Disorder, Heart Failure Differential Diagnosis: CHF, HTN Essential Differential Diagnosis: Pneumonia, Other ( ) X-Ray, Labs, Meds, VS Vital Signs Date Time Temp Pulse Resp B/P (MAP) Pulse Ox O2 Delivery O2 Flow Rate FiO2 05/28/25 22:51 60 05/28/25 21:37 98.1 62 18 151/69 96 98.1 Lab Test 05/28/25 23:21 05/28/25 22:21 Range/Units Troponin I High Sensitivity 7 7 </=34 ng/L White Blood Count 6.2 4.4-10.8 10^3/uL Red Blood Count 3.78 L 4.0-5.20 10^6/uL Hemoglobin 11.5 L 12.2-16.2 g/dL Hematocrit 34.8 L 36.0-46.0 % Mean Corpuscular Volume 92.1 80.0-100.0 fL Mean Corpuscular Hemoglobin 30.3 28.0-32.0 pg Mean Corpuscular Hemoglobin Concent 32.9 32.0-36.0 g/dL Red Cell Distribution Width 17.3 H 11.8-14.3 % Platelet Count 147 140-450 10^3/uL Mean Platelet Volume 7.8 6.9-10.8 fL Neutrophils (%) (Auto) 50.4 37.0-80.0 % Lymphocytes (%) (Auto) 33.6 10.0-50.0 % Monocytes (%) (Auto) 9.9 0.0-12.0 % Eosinophils (%) (Auto) 5.2 0.0-7.0 % Basophils (%) (Auto) 0.9 0.0-2.0 % Neutrophils # (Auto) 3.1 1.6-8.6 10 ^3/uL Lymphocytes # (Auto) 2.1 0.4-5.4 10 ^3/uL Monocytes # (Auto) 0.6 0-1.3 10 ^3/uL Eosinophils # (Auto) 0.3 0-0.8 10 ^3/uL Basophils # (Auto) 0.1 0-0.2 10 ^3/uL Nucleated Red Blood Cells 0.0 % Sodium Level 144 136-145 mmol/L Potassium Level 4.5 3.5-5.1 mmol/L Chloride Level 107 98-107 mmol/L Carbon Dioxide Level 27 20-31 mmol/L Anion Gap 10 5-15 Blood Urea Nitrogen 30 H 9-23 mg/dL Creatinine 1.55 H 0.550-1.02 mg/dL Glomerular Filtration Rate Calc 32 >90 mL/min BUN/Creatinine Ratio 19.4 10.0-20.0 Serum Glucose 90 74-106 mg/dL Calcium Level 9.1 8.7-10.4 mg/dL Magnesium Level 2.3 1.6-2.6 mg/dL Total Bilirubin 0.6 0.2-1.0 mg/dL Aspartate Amino Transferase (AST) 23 13-40 U/L Alanine Aminotransferase (ALT) 10 7-40 U/L Alkaline Phosphatase 68 46-116 U/L B-Type Natriuretic Peptide 219.68 0-100 pg/mL Total Protein 7.1 5.7-8.2 g/dL Albumin 4.6 3.2-4.8 g/dL Images Reviewed?: Images reviewed and evaluated by me Time of 1ST Reevaluation: 23:32 (The case was discussed with the admitting team (HPI, physical exam, labs and diagnostic tests that were available at the time of disposition, ED course, treatment plan) on the phone. They agreed to admit the patient to their service and assume care of this patient from this point forward. Nurse practitioner Danielle) Reevaluation 1ST: Unchanged Patient Education/Counseling: Diagnosis, Treatment Family Education/Counseling: Other SEPSIS Sepsis Screen Date sepsis recognized/suspect: May 28, 2025 Time Sepsis recognized/suspect: 2140 Recent Procedure: No On Antibiotic Therapy: No Respiratory Rate >20: No Heart Rate >90: No Temp<36 C (96.8 F) or >38.3 C: No SBP <90 or MAP <65 mmHG: No New Acute Mental Status Change: No Is the patient on CPAP, BIPAP,: No Physician Orders Electrocardigram (05/28/25 19:08) Electrocardigram (05/28/25 21:08) Embossing Toolsetter (05/28/25 ) Drug Screen (05/28/25 22:00) Chest Portable (05/28/25 22:00) Vital Signs Date Time Temp Pulse Resp B/P (MAP) Pulse Ox O2 Delivery O2 Flow Rate FiO2 10/9/25 22:51 60 05/28/25 21:37 98.1 62 18 151/69 96 98.1 Laboratory Tests Test 05/28/25 22:21 White Blood Count 6.2 10^3/uL (4.4-10.8) Departure 1 Departure Time of Disposition: 00:11 Impression: Primary Impression: Shortness of breath Additional Impression: Swelling of lower extremity Disposition: ADMITTED INPATIENT Admit to: [facility] Condition: Fair Discharged With: Self Comments Patient is admitted to this facility for further workup of bilateral lower extremity swelling, would need IV diuresis and an echocardiogram Critical Care Note Critical Care Time?: No Stability Stability form required: No Heart Score Heart Score: Heart Score Response (Comments) Value History Moderate Suspicious 1 EKG Normal 0 Age >65 2 Risk Factors >3 or Hx ASHD 2 Troponin Normal limit 0 Total 5 DIANE YOUNG RESIDENT May 28, 2025 22:19 SHAYY GARRISON DO May 28, 2025 23:34
[2025-05-28 22:40] LABS: Hematocrit 34.8 % (36.0-46.0); Hemoglobin 11.5 g/dL (12.2-16.2); Mean Corpuscular Hemoglobin 30.3 pg (28.0-32.0); Mean Corpuscular Volume 92.1 fL (80.0-100.0); Nucleated Red Blood Cells % 0.0 %
--- NOTE | 2025-05-28 22:41 | DVH ---
CHEST RADIOGRAPH Indication: cp/sob Technique: Single frontal view of the chest was obtained Comparison: XY CHEST PORTABLE on DOS: 11/20/24, XR CHEST 1 VIEW on DOS: 04/10/23, XR CHEST 1 VIEW on DOS : 03/18/23 FINDINGS: Lines and Tubes: Dual-chamber pacemaker in place with pulse generator over the left chest. Postoperat guerline changes lower cervical spine. Sternal wire sutures in place with cardiac valve prosthesis visuali zed. Lungs: No focal consolidation. Pleura: No effusion. No pneumothorax. Cardiomediastinal contours: Unremarkable Bones: No acute osseous abnormality. IMPRESSION: 1. In comparison with 11 20 2024 there has been resolution of the bilateral pleural effusions and bibas ilar airspace disease. .
--- NOTE | 2025-05-28 22:53 | ECG ---
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
[2025-05-28 23:01] LABS: Alanine Aminotransferase 10 U/L (7-40); Albumin 4.6 g/dL (3.2-4.8); Alkaline Phosphatase 68 U/L (46-116); Anion Gap 10 (5-15); BUN/Creatinine Ratio 19.4 (10.0-20.0); Bilirubin, Total 0.6 mg/dL (0.2-1.0); Calcium 9.1 mg/dL (8.7-10.4); Carbon Dioxide 27 mmol/L (20-31); Glucose 90 mg/dL (74-106); Potassium 4.5 mmol/L (3.5-5.1); Sodium 144 mmol/L (136-145); Total Protein 7.1 g/dL (5.7-8.2)
[2025-05-28 23:11] LABS: Blood Urea Nitrogen 30 mg/dL (9-23); Chloride 107 mmol/L (98-107)
[2025-05-28] MEDS ORDERED: NITROGLYCERIN 0.4 MG SL TAB SL PRN (23:30)
[2025-05-28] MEDS ORDERED: ONDANSETRON HCL 4 MG/2 ML VIAL IV PRN (23:30)
[2025-05-28] MEDS ORDERED: DOCUSATE SOD 100 MG CAP PO PRN (23:30)
[2025-05-28] MEDS ORDERED: MORPHINE SULFATE INJ 2 MG/ml SYRG IV PRN (23:30)
[2025-05-29] VITALS (10 sets, daily range): BP systolic 137–158; BP diastolic 79–87; PULSE 60–80; RESP 16–18; TEMP 97.1–97.6; O2SAT 93–97
[2025-05-29] MEDS: ACETAMINOPHEN 325 MG TAB PO PRN (00:02)
--- NOTE | 2025-05-29 00:26 | DVHHP2 ---
Admitting Diagnosis: Acute CHF , Exertional Dyspnea, SANDRA History of Present Illness History Source: Patient Exam Limitations: No limitations HPI Mrs. Yadi Leroy is an 89-year-old female with a history of AVR, MVR, Pacemaker placement, Hypertension, Hypothyroidism, c spine surgery who presented with a chief complain of shortness of breaths and lower extremity edema for the past couple of weeks. Patient reports that she has shortness of breaths on minimal exertion, along with productive cough for the past 2 weeks, also reports lower extremity swelling for similar duration, she took water pills which did not relieve her swelling or discomfort. Patient reports x2 weeks ago the car door hit both of her lower legs and relates her swelling to that incident. Reports she had bilateral lower extremity hematomas at the time. Patient endorses she was scheduled to have a bilateral lower extremity doppler but has not had the appointment. Patient reports she does not take diuretics daily only when needed. Patient states "I just do not feel well". Patient denies chest pain, nausea, vomiting, fevers, chills, BLE pain. Patient admitted for further evaluation and treatment. Home Meds Reported Medications Calcium Carbonate (Calcium) 600 Mg Tab, 600 MG PO, TAB 05/29/25 Amlodipine Besylate (NORVASC TABLET) 5 Mg Tb, 1 TAB PO DAILY, #30 TAB 5 Refills 05/29/25 Warfarin Sodium (Warfarin Sodium) 5 Mg Tab, 1 TAB PO DAILY, #90 TAB 1 Refill 05/29/25 Budesonide-Formoterol Fumarate (Budesonide/Formoterol Fum 160-4.5 Mcg/Act) 1 Aer Aer, 2 PUFF PO BID for 30 Days, #10.2 11/19/24 Famotidine (Famotidine) 20 Mg Tab, 20 MG PO PRN for 30 Days, MG 11/12/24 Acetaminophen (Acetaminophen) Unknown Strength Tab, PO PRN PRN for MILD PAIN for 30 Days, MG 0 Refills 11/12/24 Tramadol Hcl (Tramadol Hcl) 50 Mg Tab, 1 TAB PO DAILYP for 30 Days, #30 11/12/24 Alprazolam (Alprazolam) 0.5 Mg Tab, 1 TAB PO PRN, #30 TAB 11/12/24 Levothyroxine Sodium (Levothyroxine Sodium) 50 Mcg Tab, 1 TAB PO QAM for 90 Days, #90 11/12/24 Oxybutynin Chloride (Oxybutynin Chloride) 5 Mg Tab, 1 TAB PO DAILY for 90 Days, #90 11/12/24 Amiodarone Hcl (AMIODARONE HCL) 100 Mg Tab, 100 MG PO DAILY, TAB 11/12/24 Albuterol Sulfate (VENTOLIN MDI) 90 Mcg Ih, 2 PUFF IN PRN, INH 03/09/20 Multiple Vitamin (Multivitamins) Tab, 1 TAB PO DAILY, #90 TAB 3 Refills 03/09/20 Calcium Carbonate-Vitamin D (Calcium 600+D) +D Tab, 1 TAB PO DAILY, TAB 03/09/20 B-Complex W/ Folic Acid (B Complex) Tab, 1 TAB PO DAILY, TAB 03/09/20 Carvedilol (Carvedilol) 25 Mg Tab, 25 MG PO Q12HR for 30 Days, MG 03/09/20 Past Medical History Cardiac: HTN Pulmonary: No pertinent Hx Central Nervous System: No pertinent Hx GI: No pertinent Hx Hemotology/Oncology: No pertinent Hx Hepatobiliary: No pertinent Hx Psychiatric: No pertinent Hx Musculoskeletal: No pertinent Hx Rheumotologic: No pertinent Hx Infectious Disease: No peritnent Hx ENT: No pertinent Hx Renal/: No pertinent Hx Endocrine: Hypothyroidism Dermatology: No pertinent Hx Past Surgical History: Pacemaker, Other (MVR, AVR) Patient Family History: Patient reports no known family medical history. Smoker: No Hx (Negative) Alocohol: None Drugs: None Lives with: With family Domestic Violence: Neg Review of Systems Constitutional: No symptom reported Ears, Nose, & Throat: No symptom reported Eyes: No symptom reported Pulmonary/Respiratory: Dyspnea Cardiovascular: No symptom reported Gastrointestinal: No symptom reported Genitourinary: No symptom reported Musculoskeletal: No symptom reported Skin: No symptom reported Psychiatric: No symptom reported Endocrine: No symptom reported Hemotologic/Lymphatic: No symptom reported All Other Systems bilateral lower extremity edema/swelling/erythema H&P Exam Vital Signs Vital Signs Date Time Temp Pulse Resp B/P (MAP) Pulse Ox O2 Delivery O2 Flow Rate FiO2 05/29/25 00:06 97.7 60 18 142/66 (91) 97 97.7 05/29/25 00:06 Room Air* 0 21 General Appeara: Well developed, Well nourished, Normal Appearance Head Exam: Normal inspection Neck Exam: Normal inspection, Non-tender, Normal alignment Eye Exam: bilateral eye Normal inspection, bilateral eye PERRL, bilateral eye EOMI Ear Exam: bilateral ear Auricle normal Nasal Exam: Normal inspection Mouth: Normal Inspection Pulmonary/Respiratory: Normal inspection, Normal breath sounds, Chest non- tender, Lungs clear Cardiovascular/Chest: Normal inspection, Regular rate, Normal Rhythm Peripheral Pulses: 2+ dorsalis pedis (R), 2+ dorsalis pedis (L), 2+ Radial (R), 2+ Radial (L) Abdominal Exam: Normal bowel sounds, Soft Back Exam: Normal inspection Legs: bilateral leg swelling (+4 pitting edema) 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 Exam: Normal hearing, Normal speech, PERRL Motor/Sensory: Normal sensory function, Normal motor function Neuro/Mental St: Alert, Oriented Appearance: Appropriate appearance, Appropriate insight Eye contact/ Speech: Cooperative, Good eye contact, Normal speech Skin Exam: Normal inspection, Normal color, Warm/dry, Other (erythema to bilateral lower extremities ) SEPSIS Sepsis Screen Date sepsis recognized/suspect: May 28, 2025 Time Sepsis recognized/suspect: 2140 Recent Procedure: No On Antibiotic Therapy: No Respiratory Rate >20: No Heart Rate >90: No Temp<36 C (96.8 F) or >38.3 C: No SBP <90 or MAP <65 mmHG: No New Acute Mental Status Change: No Is the patient on CPAP, BIPAP,: No Physician Orders Electrocardigram (05/28/25 19:08) Electrocardigram (05/28/25 21:08) Medical Affairs Leader (05/28/25 ) Drug Screen (05/28/25 22:00) Chest Portable (05/28/25 22:00) Admit (05/28/25 23:29) * Cardiology Consult (05/28/25 23:29) Echo 2d Mode Cardiac Dop (05/28/25 23:29) Maintain Fluid Restrictions QSHIFT (05/28/25 23:29) Strict I & O QSHIFT (05/28/25 23:29) Cardiac Diet-2gna,Lofat,Lochol (05/29/25 Breakfast) Full Code (05/28/25 23:29) Nitroglycerin Sublingual (Ntrostat Subli (05/28/25 23:30) Morphine Sulfate Injection (05/28/25 23:30) Stat Ekg For Chest Pain (05/28/25 23:29) Notify Md Of Changes From Base (05/28/25 23:29) Washcloth Folder For 24 Hours (05/28/25 23:29) Emergency Dysrhythmia Protocol (05/28/25 23:29) Rhythm Strips Once Every Shift (05/28/25 23:29) Oxygen By Nasal Cannula (05/28/25 23:29) Basic Metabolic Panel (05/29/25 05:00) Basic Metabolic Panel (05/30/25 05:00) Basic Metabolic Panel (05/31/25 05:00) Magnesium (05/28/25 23:29) Complete Blood Count (05/29/25 04:00) Furosemide Injection (Lasix Injection) (05/29/25 10:00) Ondansetron Hcl (Zofran) (05/28/25 23:30) Hydrocodone-Acet 5/325mg Tab ([place] 5/32 (05/28/25 23:30) Acetaminophen Tablet (Tylenol Tablet) (05/28/25 23:30) Pantoprazole (Protonix) (05/29/25 10:00) Melatonin (Melatonin) (05/28/25 23:30) Docusate Sodium Capsule (Colace Capsule) (05/28/25 23:30) Communication Order (05/28/25 23:37) Sequential Compression Device (05/28/25 23:39) Fall Risk Precautions In Place QSHIFT (05/28/25 23:39) Pt Request For Service (05/28/25 23:39) Vital Signs Date Time Temp Pulse Resp B/P (MAP) Pulse Ox O2 Delivery O2 Flow Rate FiO2 05/29/25 00:06 97.7 60 18 142/66 (91) 97 97.7 05/29/25 00:06 61 18 97 Room Air* 0 21 05/29/25 00:02 98.7 05/28/25 22:51 60 05/28/25 21:37 98.1 62 18 151/69 96 98.1 Laboratory Tests Test 05/28/25 22:21 White Blood Count 6.2 10^3/uL (4.4-10.8) Medications Medications Dose Ordered Sig/Kari Route Start Time Stop Time Status Last Admin Dose Admin Acetaminophen 650 mg Q6HPRN PRN PO 05/28/25 23:30 05/29/25 00:02 650 MG Labs/Xrays Labs Test 05/28/25 23:21 05/28/25 22:21 Range/Units Troponin I High Sensitivity 7 </=34 ng/L White Blood Count 6.2 4.4-10.8 10^3/uL Red Blood Count 3.78 L 4.0-5.20 10^6/uL Hemoglobin 11.5 L 12.2-16.2 g/dL Hematocrit 34.8 L 36.0-46.0 % Mean Corpuscular Volume 92.1 80.0-100.0 fL Mean Corpuscular Hemoglobin 30.3 28.0-32.0 pg Mean Corpuscular Hemoglobin Concent 32.9 32.0-36.0 g/dL Red Cell Distribution Width 17.3 H 11.8-14.3 % Platelet Count 147 140-450 10^3/uL Mean Platelet Volume 7.8 6.9-10.8 fL Neutrophils (%) (Auto) 50.4 37.0-80.0 % Lymphocytes (%) (Auto) 33.6 10.0-50.0 % Monocytes (%) (Auto) 9.9 0.0-12.0 % Eosinophils (%) (Auto) 5.2 0.0-7.0 % Basophils (%) (Auto) 0.9 0.0-2.0 % Neutrophils # (Auto) 3.1 1.6-8.6 10 ^3/uL Lymphocytes # (Auto) 2.1 0.4-5.4 10 ^3/uL Monocytes # (Auto) 0.6 0-1.3 10 ^3/uL Eosinophils # (Auto) 0.3 0-0.8 10 ^3/uL Basophils # (Auto) 0.1 0-0.2 10 ^3/uL Nucleated Red Blood Cells 0.0 % Sodium Level 144 136-145 mmol/L Potassium Level 4.5 3.5-5.1 mmol/L Chloride Level 107 98-107 mmol/L Carbon Dioxide Level 27 20-31 mmol/L Anion Gap 10 5-15 Blood Urea Nitrogen 30 H 9-23 mg/dL Creatinine 1.55 H 0.550-1.02 mg/dL Glomerular Filtration Rate Calc 32 >90 mL/min BUN/Creatinine Ratio 19.4 10.0-20.0 Serum Glucose 90 74-106 mg/dL Calcium Level 9.1 8.7-10.4 mg/dL Total Bilirubin 0.6 0.2-1.0 mg/dL Aspartate Amino Transferase (AST) 23 13-40 U/L Alanine Aminotransferase (ALT) 10 7-40 U/L Alkaline Phosphatase 68 46-116 U/L B-Type Natriuretic Peptide 219.68 0-100 pg/mL Total Protein 7.1 5.7-8.2 g/dL Albumin 4.6 3.2-4.8 g/dL Assessment/Plan Problem List: (1) Acute CHF (2) Shortness of breath (3) Swelling of lower extremity Plan This is an 89 yo female with known history of Pacemaker placement, AVR, MVR, Hypertension, Hypothyroidism who presents to the hospital with exertional shortness of breath and bilateral lower extremity swelling x 2 weeks. Patient found to have 1. Acute CHF 2. Exertional Dyspnea 3. Hypertension 4. Hypothyroidism 5. Pacemaker placement 6. AVR 7. MVR Plan Admit telemetry Cardiology consultation, 2D echocardiogram Fluid Restriction/strict I&O's IV Diuresis GI ppx DVT ppx Daily BMP Magnesium level Monitor electrolytes VQ scan pending r/o PE BLE venous Doppler pending r/o DVT Continue home medications when reconciled Discussed all above with patient who verbalizes agreement and understanding of care plan. All questions were answered. Discussed care plan with patient nurse Jessica PEREZ. Discussed with supervising MD. Plan discussed with: Patient, Other Code Visit Code Visit Total Time (mins): 45 VALERIE BAR May 29, 2025 00:26
[2025-05-29] MEDS ORDERED: AML5T PO (07:15)
[2025-05-29] MEDS ORDERED: CALC1TAB92 PO (07:15)
[2025-05-29] MEDS ORDERED: WARF-66 PO (07:15)
[2025-05-29] MEDS ORDERED: ALPRAZolam 0.5 MG TAB PO SCH (07:45)
[2025-05-29 07:48] LABS: Hematocrit 36.3 % (36.0-46.0); Hemoglobin 11.9 g/dL (12.2-16.2); Mean Corpuscular Hemoglobin 30.1 pg (28.0-32.0); Mean Corpuscular Volume 92.2 fL (80.0-100.0); Nucleated Red Blood Cells % 0.1 %
[2025-05-29 07:56] LABS: Potassium 4.2 mmol/L (3.5-5.1); Sodium 142 mmol/L (136-145)
[2025-05-29 07:57] LABS: Anion Gap 10 (5-15); Carbon Dioxide 24 mmol/L (20-31)
[2025-05-29 07:58] LABS: Calcium 9.4 mg/dL (8.7-10.4)
[2025-05-29 08:03] LABS: BUN/Creatinine Ratio 20.0 (10.0-20.0); Glucose 90 mg/dL (74-106); INR 1.94 (0.9-1.15); Prothrombin Time 19.3 sec (9.3-11.8)
[2025-05-29 08:05] LABS: Blood Urea Nitrogen 26 mg/dL (9-23); Chloride 108 mmol/L (98-107)
--- NOTE | 2025-05-29 08:46 | DVH ---
CLINICAL HISTORY: r/o dvt TECHNIQUE: Color and duplex doppler imagine of the bilateral lower extremity veins was performed. Ves sher compression and augmentation if possible was also performed. COMPARISON: None FINDINGS: Right Lower Extremity: Right common femoral vein: Normal compressibility and flow. Right superficial femoral vein: Normal compressibility and flow. Right popliteal vein: Normal compressibility and flow. Proximal calf veins demonstrate flow. Left Lower Extremity: Left common femoral vein: Normal compressibility and flow. Left superficial femoral vein: Normal compressibility and flow. Left popliteal vein: Normal compressibility and flow. Proximal calf veins demonstrate flow. IMPRESSION: NO SONOGRAPHIC EVIDENCE FOR DEEP VENOUS THROMBOSIS IN THE BILATERAL LOWER EXTREMITY VEINS.
[2025-05-29] MEDS ORDERED: AMIODARONE HCL 200 MG TAB PO SCH (10:00)
[2025-05-29] MEDS: OXYBUTYNIN CHLORIDE 5 MG PO SCH (10:00)
[2025-05-29] MEDS: CARVEDILOL 12.5 MG TAB PO SCH (10:33)
[2025-05-29] MEDS: CALCIUM W/VIT D (600MG/400IU) TAB PO SCH (10:33)
--- NOTE | 2025-05-29 14:32 | DVH ---
CLINICAL INFORMATION: Shortness of breath. TECHNIQUE: 4.4 mCi of Xenon-133 gas was used for the ventilation portion of the exam. Posterior vent ilation imaging was obtained. 5.1 mCi of technetium 99m MAA was used for the perfusion portion of the exam. Imaging was obtained in multiple planes of projection. COMPARISON: XY CHEST PORTABLE on DOS: 05/28/25, XY CHEST PORTABLE on DOS: 11/20/24, XR CHEST 2 VIEW on D OS: 11/12/24 FINDINGS: No perfusion defects are seen on the anterior or posterior projections in either lung. On t he left anterior oblique and left lateral projections, there are perfusion defects involving large po rtions of the left lung, which may be artifactual, given that they are not correlated on other projec tions. May be artifact due to overlying soft tissue and possibly the patient's pacemaker device. Vent ilation imaging shows no defects. There is normal washout. IMPRESSION: Low probability of pulmonary embolism (less than 20% probability). Perfusion defects seen on the left anterior oblique and left lateral projections only, not correlated on other projections, favored to be artifactual. Correlate with clinical findings.
[2025-05-29] MEDS: PANTOPRAZOLE 40 MG/10 ML VIAL INJ IV SCH (15:44)
[2025-05-29] MEDS: FUROSEMIDE 40 MG/4 ML VIAL IV SCH (15:45)
[2025-05-29] MEDS: MULTIPLE VITAMIN TAB PO SCH (15:45)
[2025-05-29] MEDS: WARFARIN SODIUM 5 MG TAB PO ONE (15:47)
[2025-05-29] MEDS: MELATONIN 5 MG TAB PO PRN (23:50)
--- NOTE | 2025-05-29 23:57 | DVHSR ---
APPROVED REPORT EXAM: Two-dimensional and M-mode echocardiogram with Doppler and color Doppler. Blood Pressure: 143/79 mmHg INDICATION Heart Failure Surgery/Intervention Valve Replacement: Type: MV, AV RISK FACTORS Height: 5'3", Weight: 143 DIMENSIONS LVDd4.6 (3.8-5.7cm)LA (2D)5.1 (1.9-4.0cm)Aortic Root (2.0-3.7cm) LVDs2.8 (2.5-4.0cm)LA (MM) (1.9-4.0cm)Aortic Cusp Exc (1.5-2.0cm) EF (%) 69.0 (55-70%)Rt. Atrium5.7 (1.9-4.0cm)Asc. Aorta cm IVSd1.3 (0.7-1.1cm)RV (D)4.4 (1.8-2.4cm) PWd0.8 (0.7-1.1cm) Mitral Valve MitralMitral Stenosis E wave1.22m/sMV Mean GR.5mmHg A wavem/sMV Peak GR.15mmHg E/A ratio0.02D MVAcm2 Aortic Valve Aortic ValveAortic Stenosis V11.39m/Cuate Mean GR.7mmHg V21.88m/Cuate Peak GR.14mmHg LVOT Diameter1.9 (1.8-2.4cm)Doppler AVA2.10cm2 Pulmonic Valve V20.92m/s Tricuspid Valve TR Velocity2.97m/s [id number] Other Information Quality : Technically LimitedRhythm : Technically limited study due to body habitus. Conclusion MODERATE DEGREE LVH AND MODERATE DEGREE LV DIASTOLIC DYSFUNCTION LV EF IS 65% AND IS NORMAL MODERATELY DILATED LA,RV AND RA APPEAR LIKE BIO=PROSTHETIC MV AND AORTIC VALVE AND BOTH ARE FUNCTIONING WELL NO THROMBUS OR VEGETATION NO EFFUSION MODERATE DEGREE PULMONARY HYPERTENSION RVSP IS 44 MM OF HG AND IS MODERATELY HIGH SEVERE TRICUSPID VALVE REGURGITATION
[2025-05-30] VITALS (8 sets, daily range): BP systolic 80–159; BP diastolic 44–86; PULSE 59–92; RESP 16–18; TEMP 97.5–98.5; O2SAT 93–98
[2025-05-30] MEDS: LEVOTHYROXINE SODIUM 50 MCG TAB PO SCH (06:04)
[2025-05-30 07:25] LABS: Hematocrit 34.4 % (36.0-46.0); Hemoglobin 11.3 g/dL (12.2-16.2); Mean Corpuscular Hemoglobin 29.9 pg (28.0-32.0); Mean Corpuscular Volume 91.2 fL (80.0-100.0); Nucleated Red Blood Cells % 0.0 %
[2025-05-30 07:30] LABS: Chloride 106 mmol/L (98-107); Potassium 3.9 mmol/L (3.5-5.1); Sodium 143 mmol/L (136-145)
[2025-05-30 07:31] LABS: Anion Gap 9 (5-15); Carbon Dioxide 28 mmol/L (20-31)
[2025-05-30 07:32] LABS: Calcium 9.0 mg/dL (8.7-10.4)
[2025-05-30 07:33] LABS: INR 1.59 (0.9-1.15); Partial Thromboplastin Time 35.2 SEC (24.5-34.5); Prothrombin Time 16.1 sec (9.3-11.8)
[2025-05-30 07:36] LABS: BUN/Creatinine Ratio 17.8 (10.0-20.0); Glucose 102 mg/dL (74-106)
[2025-05-30 07:38] LABS: Blood Urea Nitrogen 28 mg/dL (9-23)
[2025-05-30] MEDS: HYDROcodone-ACET 5/325MG TAB PO PRN (10:41)
--- NOTE | 2025-05-30 12:59 | DVHINCON2 ---
Date Seen: May 30, 2025 Referring Physician Sebastian RODRIGUEZ Reason for Consultation Shortness of breath and evaluation of CHF History of Present Illness 89-year-old female presents to the ED with complaint of shortness of breath and bilateral lower extremity edema for the past two days. Cardiology is consulted for evaluation and management of shortness of breath and possible acute CHF. The patient is alert and oriented, reports mild dyspnea on exertion, and notes that her Lasix dose was recently decreased by her primary care provider. She denies chest pain, orthopnea, or paroxysmal nocturnal dyspnea. A 12 lead ECG revealed junctional rhythm the rate of 60. The patient follows with her cook helper juice, Dr. Kelly, and has an upcoming appointment in June. Past medical history includes aortic and mitral valve replacement on Coumadin, dual- chamber permanent pacemaker, history of atrial fibrillation, pulmonary hypert ension, and hypothyroidism. Past Medical History As stated in HPI Past Surgical History As stated in HPI Family History: Cardiovascular disease G8 FATHER Family History Reviewed, non-contributory to the management of this case. Social History The patient lives at home, denies smoking, alcohol or illicit drugs abuse. Allergies: Coded Allergies: Iron (Verified Allergy, Unknown, 07/02/20) PO ONLY Sulfa Antibiotics (Verified Allergy, Unknown, 07/02/20) Home Meds Reported Medications Calcium Carbonate (Calcium) 600 Mg Tab, 600 MG PO, TAB 05/29/25 Amlodipine Besylate (NORVASC TABLET) 5 Mg Tb, 1 TAB PO DAILY, #30 TAB 5 Refills 05/29/25 Warfarin Sodium (Warfarin Sodium) 5 Mg Tab, 1 TAB PO DAILY, #90 TAB 1 Refill 05/29/25 Budesonide-Formoterol Fumarate (Budesonide/Formoterol Fum 160-4.5 Mcg/Act) 1 Aer Aer, 2 PUFF PO BID for 30 Days, #10.2 11/19/24 Famotidine (Famotidine) 20 Mg Tab, 20 MG PO PRN for 30 Days, MG 11/12/24 Acetaminophen (Acetaminophen) Unknown Strength Tab, PO PRN PRN for MILD PAIN for 30 Days, MG 0 Refills 11/12/24 Tramadol Hcl (Tramadol Hcl) 50 Mg Tab, 1 TAB PO DAILYP for 30 Days, #30 11/12/24 Alprazolam (Alprazolam) 0.5 Mg Tab, 1 TAB PO PRN, #30 TAB 11/12/24 Levothyroxine Sodium (Levothyroxine Sodium) 50 Mcg Tab, 1 TAB PO QAM for 90 Days, #90 11/12/24 Oxybutynin Chloride (Oxybutynin Chloride) 5 Mg Tab, 1 TAB PO DAILY for 90 Days, #90 11/12/24 Amiodarone Hcl (AMIODARONE HCL) 100 Mg Tab, 100 MG PO DAILY, TAB 11/12/24 Albuterol Sulfate (VENTOLIN MDI) 90 Mcg Ih, 2 PUFF IN PRN, INH 03/09/20 Multiple Vitamin (Multivitamins) Tab, 1 TAB PO DAILY, #90 TAB 3 Refills 03/09/20 Calcium Carbonate-Vitamin D (Calcium 600+D) +D Tab, 1 TAB PO DAILY, TAB 03/09/20 B-Complex W/ Folic Acid (B Complex) Tab, 1 TAB PO DAILY, TAB 03/09/20 Carvedilol (Carvedilol) 25 Mg Tab, 25 MG PO Q12HR for 30 Days, MG 03/09/20 Current Medications Current Medications Medications (Trade) Dose Ordered Sig/Kari Route PRN Reason Start Time Stop Time Status Last Admin Levothyroxine Sodium (Synthroid Tablet) 50 mcg QAM PO 05/30/25 07:00 05/30/25 06:04 Review of Systems Constitutional: No symptom reported Ears, Nose, & Throat: No symptom reported Eyes: No symptom reported Neurological: No symptoms reported Pulmonary/Respiratory: Shortness of breath Cardiovascular: Dyspnea, bilateral lower extremity edema Gastrointestinal: No symptom reported Genitourinary: No symptom reported Musculoskeletal: No symptom reported Skin: No symptom reported Psychiatric: No symptom reported Endocrine: No symptom reported Hemotologic/Lymphatic: No symptom reported Vital Signs Vital Signs Date Time Temp Pulse Resp B/P (MAP) Pulse Ox O2 Delivery O2 Flow Rate FiO2 05/30/25 10:39 118/67 05/30/25 09:00 98.1 59 17 97 98.1 05/30/25 08:00 Room Air* 0 21 Physical Exam INITIAL VITAL SIGNS: Reviewed by me GENERAL: Alert and interactive. No acute distress. HEAD: Head is normocephalic and atraumatic. EYES: EOMI, PERRL. No scleral icterus. No conjunctival injection. ENT: Moist mucous membranes. NECK: Supple, No masses, Full range of motion. RESPIRATORY: No tachypnea. Clear breath sounds bilaterally. No wheezing, rales, rhonchi. CV: Paced rhythm, bilateral lower extremity + pitting edema. Mild dyspnea on exertion. No JVD distention. No orthopnea. Currently on room air GI/: Active bowel sounds, soft, nondistended, nontender. No guarding. No rebound. No masses. No CVA tenderness. INTEGUMENTARY: Warm and dry. No obvious rashes. NEUROLOGIC: Alert and oriented. Face is symmetric. Speech is normal. Moves all extremities equally. Labs/Diagnostic Data Labs Test 05/30/25 06:01 05/28/25 23:21 05/28/25 22:21 Range/Units White Blood Count 5.6 4.4-10.8 10^3/uL Red Blood Count 3.77 L 4.0-5.20 10^6/uL Hemoglobin 11.3 L 12.2-16.2 g/dL Hematocrit 34.4 L 36.0-46.0 % Mean Corpuscular Volume 91.2 80.0-100.0 fL Mean Corpuscular Hemoglobin 29.9 28.0-32.0 pg Mean Corpuscular Hemoglobin Concent 32.8 32.0-36.0 g/dL Red Cell Distribution Width 17.1 H 11.8-14.3 % Platelet Count 130 L 140-450 10^3/uL Mean Platelet Volume 7.9 6.9-10.8 fL Neutrophils (%) (Auto) 64.2 37.0-80.0 % Lymphocytes (%) (Auto) 20.2 10.0-50.0 % Monocytes (%) (Auto) 10.9 0.0-12.0 % Eosinophils (%) (Auto) 4.0 0.0-7.0 % Basophils (%) (Auto) 0.7 0.0-2.0 % Neutrophils # (Auto) 3.6 1.6-8.6 10 ^3/uL Lymphocytes # (Auto) 1.1 0.4-5.4 10 ^3/uL Monocytes # (Auto) 0.6 0-1.3 10 ^3/uL Eosinophils # (Auto) 0.2 0-0.8 10 ^3/uL Basophils # (Auto) 0 0-0.2 10 ^3/uL Nucleated Red Blood Cells 0.0 % Prothrombin Time 16.1 H 9.3-11.8 sec Prothrombin Time INR 1.59 H 0.9-1.15 Activated Partial Thromboplast Time 35.2 H 24.5-34.5 SEC Sodium Level 143 136-145 mmol/L Potassium Level 3.9 3.5-5.1 mmol/L Chloride Level 106 98-107 mmol/L Carbon Dioxide Level 28 20-31 mmol/L Anion Gap 9 5-15 Blood Urea Nitrogen 28 H 9-23 mg/dL Creatinine 1.57 H 0.550-1.02 mg/dL Glomerular Filtration Rate Calc 32 >90 mL/min BUN/Creatinine Ratio 17.8 10.0-20.0 Serum Glucose 102 74-106 mg/dL Calcium Level 9.0 8.7-10.4 mg/dL Troponin I High Sensitivity 7 </=34 ng/L Magnesium Level 2.3 1.6-2.6 mg/dL Total Bilirubin 0.6 0.2-1.0 mg/dL Aspartate Amino Transferase (AST) 23 13-40 U/L Alanine Aminotransferase (ALT) 10 7-40 U/L Alkaline Phosphatase 68 46-116 U/L B-Type Natriuretic Peptide 219.68 0-100 pg/mL Total Protein 7.1 5.7-8.2 g/dL Albumin 4.6 3.2-4.8 g/dL PROCEDURE(s): CXRP - CHEST PORTABLE REASON: cp/sob ORDER NUMBER(s): [id number], ACCESSION NUMBER(s): [id number] CHEST RADIOGRAPH Indication: cp/sob Technique: Single frontal view of the chest was obtained Comparison: XY CHEST PORTABLE on DOS: 11/20/24, XR CHEST 1 VIEW on DOS: 04/10/23, XR CHEST 1 VIEW on DOS: 03/18/23 FINDINGS: Lines and Tubes: Dual-chamber pacemaker in place with pulse generator over the left chest. Postoperative changes lower cervical spine. Sternal wire sutures in place with cardiac valve prosthesis visualized. Lungs: No focal consolidation. Pleura: No effusion. No pneumothorax. Cardiomediastinal contours: Unremarkable Bones: No acute osseous abnormality. IMPRESSION: 1. In comparison with 11 20 2024 there has been resolution of the bilateral pleural effusions and bibasilar airspace disease. . Assessment Mild volume overload in the setting of recent Lasix dose reduction Preserved LV systolic function s/p aortic and mitral valve replacement (bioprosthetic) on Coumadin Presence of dual-chamber permanent pacemaker Pulmonary hypertension Severe tricuspid valve regurgitation History of AFib Hypothyroidism Plan/Recommendation (Dr. Sibley ): Mild acute on chronic right-sided heart failure due to severe tricuspid regurgitation and pulmonary hypertension, with preserved LV function. No evidence of acute decompensated left-sided CHF or ischemia. * Continue with IV diuresis, monitor intake and output, and daily weight * Monitor electrolytes and renal function closely while on diuretics * Continue with anticoagulation with Coumadin * Continue with cardiac medication as tolerated * Advised to follow-up with her cook helper juice as scheduled This medical document was created using an electronic medical record system with voice recognition software and computerized dictation system. Although this document has been carefully reviewed, there might still be some phonetic and typographical errors. Occasional wrong-word or ``sound-alike substitutions may have occurred due to the inherent limitations of voice recognition software. These areas are purely typographical due to imperfections of the software programs and do not reflect any compromise in the patient's medical care. Please read the chart carefully and recognize, using context, where these substitutions have occurred. Plan discussed with: Patient Plan discussed with: Patient NYHA Physical activity limitations: Class1(None)absent sob, Date of Service: May 30, 2025 Billing Provider: GIL SIBLEY MD Cardiology Common Codes: CONSULT ONLY Cardiology Consultation Codes: 66388-[id number] CONSULT <45MIN LIONEL ACOSTA [facility] May 30, 2025 12:59
[2025-05-30] MEDS: WARFARIN SODIUM 2.5 MG TAB PO ONE (16:18)
--- NOTE | 2025-05-30 18:33 | DVHPN2 ---
Subjective Patient is feeling little better maybe one more day. 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 Medications Current Medications Medications Dose Ordered Sig/Kari Route Start Time Stop Time Status Last Admin Dose Admin Nitroglycerin 0.4 mg Q5MINP PRN SL 05/28/25 23:30 Morphine Sulfate 2 mg Q30M PRN IV 05/28/25 23:30 Furosemide 40 mg BID IV 05/29/25 10:00 05/30/25 10:39 40 MG Ondansetron HCl 4 mg Q6HPRN PRN IV 05/28/25 23:30 Acetaminophen/ Hydrocodone Bitart 1 tab Q6HPRN PRN PO 05/28/25 23:30 05/30/25 10:41 1 TAB Acetaminophen 650 mg Q6HPRN PRN PO 05/28/25 23:30 05/29/25 22:18 650 MG Pantoprazole Sodium 40 mg DAILY IV 05/29/25 10:00 05/30/25 10:35 40 MG Melatonin 5 mg ONCE@2200 PRN PO 05/28/25 23:30 05/29/25 23:50 5 MG Docusate Sodium 100 mg BIDPRN PRN PO 05/28/25 23:30 Levothyroxine Sodium 50 mcg QAM PO 05/30/25 07:00 05/30/25 06:04 50 MCG Multivitamins 1 tab DAILY PO 05/29/25 10:00 05/30/25 10:40 1 TAB Patient Own Medication 1 DAILY PO 05/29/25 10:00 Calcium/Vitamin D 1 tab DAILY PO 05/29/25 10:00 05/30/25 10:40 1 TAB Amiodarone HCl 50 mg DAILY PO 05/29/25 10:00 Hold Alprazolam 0.5 mg PRN PO 05/29/25 07:45 Hold Amlodipine Besylate 5 mg DAILY PO 05/29/25 10:00 05/30/25 10:36 5 MG Warfarin Sodium PER PHARMACY PO 05/30/25 13:45 Carvedilol 12.5 mg Q12HR PO 05/30/25 22:00 Laboratory Results Laboratory Tests 05/30/25 06:01 Chemistry Test 05/30/25 06:01 Calcium Level 9.0 mg/dL (8.7-10.4) Coagulation Test 05/30/25 06:01 Prothrombin Time 16.1 sec (9.3-11.8) H Prothrombin Time INR 1.59 (0.9-1.15) H Activated Partial Thromboplast Time 35.2 SEC (24.5-34.5) H Assessment/Plan Assessment/Plan 89-year-old female with a known history of dual chamber permanent pacemaker placement, status post AVR and MVR, hypertension, hypothyroidism presented to the hospital with the increasing shortness a breath and bilateral leg swelling for last two weeks found to have 1. Acute on chronic congestive heart failure exacerbation probably diastolic dysfunction 2. Dyspnea on exertion secondary to 1. 3. Status post dual-chamber pacemaker placement 4. Status post aortic valve replacement 5. Status post mitral valve replacement prosthetic heart valve 6. Hypertension 7. Suspected pulmonary hypertension -continue diuretics, follow up Cardiology recommendations, Coumadin per pharmacy -physical therapy evaluation and treatment, discharge plan. Plan discussed with: Patient My Orders Orders - EVELINA NUÑEZ MD Procedure Category Date Status Time Carvedilol Tablet PHA 05/30/25 In Process (Coreg Tablet) 22:00 Date of Service: May 30, 2025 Billing Provider: EVELINA NUÑEZ MD Common Visit Codes: NOT BILLABLE EVELINA NUÑEZ MD May 30, 2025 18:34
[2025-05-30] MEDS: CARVEDILOL 12.5 MG TAB PO SCH (22:00)
--- NOTE | 2025-05-30 23:43 | DVHINCON2 ---
Date Seen: May 30, 2025 Referring Physician Sebastian RODRIGUEZ Reason for Consultation Shortness of breath and evaluation of CHF History of Present Illness This is an 89-year-old female with a past medical history of aortic and mitral valve replacement on Coumadin, dual-chamber permanent pacemaker, history of atrial fibrillation, pulmonary hypertension, and hypothyroidism who presents to the ED with complaint of shortness of breath and bilateral lower extremity edema for the past two days. The patient is alert and oriented, reports mild dyspnea on exertion, and notes that her Lasix dose was recently decreased by her primary care provider. She denies chest pain, orthopnea, or paroxysmal nocturnal dyspnea. A 12 lead ECG revealed junctional rhythm the rate of 60. The patient follows with her clinical documentation manager, Dr. Kelly, and has an upcoming appointment in June. Cardiology is consulted for evaluation and management of shortness of breath and possible acute CHF. Past Medical History As stated in HPI Past Surgical History As stated in HPI Family History: Cardiovascular disease G8 FATHER Allergies: Coded Allergies: Iron (Verified Allergy, Unknown, 07/02/20) PO ONLY Sulfa Antibiotics (Verified Allergy, Unknown, 07/02/20) Home Meds Reported Medications Calcium Carbonate (Calcium) 600 Mg Tab, 600 MG PO, TAB 05/29/25 Amlodipine Besylate (NORVASC TABLET) 5 Mg Tb, 1 TAB PO DAILY, #30 TAB 5 Refills 05/29/25 Warfarin Sodium (Warfarin Sodium) 5 Mg Tab, 1 TAB PO DAILY, #90 TAB 1 Refill 05/29/25 Budesonide-Formoterol Fumarate (Budesonide/Formoterol Fum 160-4.5 Mcg/Act) 1 Aer Aer, 2 PUFF PO BID for 30 Days, #10.2 11/19/24 Famotidine (Famotidine) 20 Mg Tab, 20 MG PO PRN for 30 Days, MG 11/12/24 Acetaminophen (Acetaminophen) Unknown Strength Tab, PO PRN PRN for MILD PAIN for 30 Days, MG 0 Refills 11/12/24 Tramadol Hcl (Tramadol Hcl) 50 Mg Tab, 1 TAB PO DAILYP for 30 Days, #30 11/12/24 Alprazolam (Alprazolam) 0.5 Mg Tab, 1 TAB PO PRN, #30 TAB 11/12/24 Levothyroxine Sodium (Levothyroxine Sodium) 50 Mcg Tab, 1 TAB PO QAM for 90 Days, #90 11/12/24 Oxybutynin Chloride (Oxybutynin Chloride) 5 Mg Tab, 1 TAB PO DAILY for 90 Days, #90 11/12/24 Amiodarone Hcl (AMIODARONE HCL) 100 Mg Tab, 100 MG PO DAILY, TAB 11/12/24 Albuterol Sulfate (VENTOLIN MDI) 90 Mcg Ih, 2 PUFF IN PRN, INH 03/09/20 Multiple Vitamin (Multivitamins) Tab, 1 TAB PO DAILY, #90 TAB 3 Refills 03/09/20 Calcium Carbonate-Vitamin D (Calcium 600+D) +D Tab, 1 TAB PO DAILY, TAB 03/09/20 B-Complex W/ Folic Acid (B Complex) Tab, 1 TAB PO DAILY, TAB 03/09/20 Carvedilol (Carvedilol) 25 Mg Tab, 25 MG PO Q12HR for 30 Days, MG 03/09/20 Current Medications Current Medications Medications (Trade) Dose Ordered Sig/Kari Route PRN Reason Start Time Stop Time Status Last Admin Levothyroxine Sodium (Synthroid Tablet) 50 mcg QAM PO 05/30/25 07:00 05/30/25 06:04 Review of Systems Constitutional: No symptom reported Ears, Nose, & Throat: No symptom reported Eyes: No symptom reported Neurological: No symptoms reported Pulmonary/Respiratory: Shortness of breath Cardiovascular: Dyspnea, bilateral lower extremity edema Gastrointestinal: No symptom reported Genitourinary: No symptom reported Musculoskeletal: No symptom reported Skin: No symptom reported Psychiatric: No symptom reported Endocrine: No symptom reported Hemotologic/Lymphatic: No symptom reported Vital Signs Vital Signs Date Time Temp Pulse Resp B/P (MAP) Pulse Ox O2 Delivery O2 Flow Rate FiO2 05/30/25 10:39 118/67 05/30/25 09:00 98.1 59 17 97 98.1 05/30/25 08:00 Room Air* 0 21 Physical Exam GENERAL: Alert and oriented x 3. No acute distress. EYES: PERRL, EOMI. Anicteric. HENT: Moist mucous membranes. LUNGS: Clear to auscultation bilaterally. CARDIOVASCULAR: Regular rate and rhythm. ABDOMEN: Soft, nontender and nondistended. EXTREMITIES: + pitting edema. NEUROLOGIC: No focal neurological deficits. SKIN: Warm, dry. Labs/Diagnostic Data Labs Test 05/30/25 06:01 05/28/25 23:21 05/28/25 22:21 Range/Units White Blood Count 5.6 4.4-10.8 10^3/uL Red Blood Count 3.77 L 4.0-5.20 10^6/uL Hemoglobin 11.3 L 12.2-16.2 g/dL Hematocrit 34.4 L 36.0-46.0 % Mean Corpuscular Volume 91.2 80.0-100.0 fL Mean Corpuscular Hemoglobin 29.9 28.0-32.0 pg Mean Corpuscular Hemoglobin Concent 32.8 32.0-36.0 g/dL Red Cell Distribution Width 17.1 H 11.8-14.3 % Platelet Count 130 L 140-450 10^3/uL Mean Platelet Volume 7.9 6.9-10.8 fL Neutrophils (%) (Auto) 64.2 37.0-80.0 % Lymphocytes (%) (Auto) 20.2 10.0-50.0 % Monocytes (%) (Auto) 10.9 0.0-12.0 % Eosinophils (%) (Auto) 4.0 0.0-7.0 % Basophils (%) (Auto) 0.7 0.0-2.0 % Neutrophils # (Auto) 3.6 1.6-8.6 10 ^3/uL Lymphocytes # (Auto) 1.1 0.4-5.4 10 ^3/uL Monocytes # (Auto) 0.6 0-1.3 10 ^3/uL Eosinophils # (Auto) 0.2 0-0.8 10 ^3/uL Basophils # (Auto) 0 0-0.2 10 ^3/uL Nucleated Red Blood Cells 0.0 % Prothrombin Time 16.1 H 9.3-11.8 sec Prothrombin Time INR 1.59 H 0.9-1.15 Activated Partial Thromboplast Time 35.2 H 24.5-34.5 SEC Sodium Level 143 136-145 mmol/L Potassium Level 3.9 3.5-5.1 mmol/L Chloride Level 106 98-107 mmol/L Carbon Dioxide Level 28 20-31 mmol/L Anion Gap 9 5-15 Blood Urea Nitrogen 28 H 9-23 mg/dL Creatinine 1.57 H 0.550-1.02 mg/dL Glomerular Filtration Rate Calc 32 >90 mL/min BUN/Creatinine Ratio 17.8 10.0-20.0 Serum Glucose 102 74-106 mg/dL Calcium Level 9.0 8.7-10.4 mg/dL Troponin I High Sensitivity 7 </=34 ng/L Magnesium Level 2.3 1.6-2.6 mg/dL Total Bilirubin 0.6 0.2-1.0 mg/dL Aspartate Amino Transferase (AST) 23 13-40 U/L Alanine Aminotransferase (ALT) 10 7-40 U/L Alkaline Phosphatase 68 46-116 U/L B-Type Natriuretic Peptide 219.68 0-100 pg/mL Total Protein 7.1 5.7-8.2 g/dL Albumin 4.6 3.2-4.8 g/dL Assessment Mild volume overload in the setting of recent Lasix dose reduction. Preserved LV systolic function. s/p aortic and mitral valve replacement (bioprosthetic) on Coumadin. Presence of dual-chamber permanent pacemaker. Pulmonary hypertension. Severe tricuspid valve regurgitation. History of AFib. Hypothyroidism. Plan/Recommendation I agree with your ongoing assessment and care of plan. Patient has been seen by Carmencita Brennan NP on my behalf, her and I discussed the plan with the patient. Mild acute on chronic right-sided heart failure due to severe tricuspid regurgitation and pulmonary hypertension, with preserved LV function. No evidence of acute decompensated left-sided CHF or ischemia. Continue with IV diuresis, monitor intake and output, and daily weight. Monitor electrolytes and renal function closely while on diuretics. Continue with anticoagulation with Coumadin. Continue with cardiac medication as tolerated. Advised to follow-up with her clinical documentation manager as scheduled. Additional plan as per the hospital course. Plan discussed with: Patient NYHA Physical activity limitations: Class1(None)absent sob, Date of Service: May 30, 2025 Billing Provider: GIL BROOKS MD Cardiology Common Codes: [id number] INP/OBS CARE (High) Cardiology Consultation Codes: [id number] CONSULT <45MIN GIL BROOKS MD May 30, 2025 13:33
[2025-05-31 01:00] VITALS: BP 120/62; PULSE 67; RESP 17; TEMP 97.7; O2SAT 96
[2025-05-31 05:00] VITALS: BP 137/76; PULSE 65; RESP 17; TEMP 98.1; O2SAT 94
[2025-05-31 05:25] LABS: Chloride 104 mmol/L (98-107); Potassium 3.6 mmol/L (3.5-5.1); Sodium 143 mmol/L (136-145)
[2025-05-31 05:26] LABS: Anion Gap 11 (5-15); Calcium 9.3 mg/dL (8.7-10.4); Carbon Dioxide 28 mmol/L (20-31)
[2025-05-31 05:31] LABS: BUN/Creatinine Ratio 14.3 (10.0-20.0); Blood Urea Nitrogen 23 mg/dL (9-23); Glucose 91 mg/dL (74-106)
[2025-05-31 05:34] LABS: INR 1.59 (0.9-1.15); Partial Thromboplastin Time 29.1 SEC (24.5-34.5); Prothrombin Time 16.1 sec (9.3-11.8)
[2025-05-31 08:00] VITALS: BP 102/60; PULSE 68; PULSE 76; RESP 17; RESP 20; TEMP 99; O2SAT 94
[2025-05-31 13:00] VITALS: BP 103/55; PULSE 61; RESP 18; TEMP 97.9; O2SAT 92
[2025-05-31] MEDS: WARFARIN SODIUM 2.5 MG TAB PO ONE (16:38)
[2025-05-31] MEDS ORDERED: FURO1TAB31 PO (16:48)
[2025-05-31] MEDS ORDERED: POTA-215 PO (16:48)
--- NOTE | 2025-05-31 16:51 | DVHDS2 ---
Discharge Summary Date of Admission May 28, 2025 at 23:29 Date of Discharge: May 31, 2025 Labs/Diagnostic Data: Laboratory Results Test 05/31/25 04:56 05/30/25 06:01 05/28/25 23:21 05/28/25 22:21 Prothrombin Time 16.1 sec (9.3-11.8) Prothrombin Time INR 1.59 (0.9-1.15) Activated Partial Thromboplast Time 29.1 SEC (24.5-34.5) Sodium Level 143 mmol/L (136-145) Potassium Level 3.6 mmol/L (3.5-5.1) Chloride Level 104 mmol/L (98-107) Carbon Dioxide Level 28 mmol/L (20-31) Anion Gap 11 (5-15) Blood Urea Nitrogen 23 mg/dL (9-23) Creatinine 1.61 mg/dL (0.550-1.02) Glomerular Filtration Rate Calc 31 mL/min (>90) BUN/Creatinine Ratio 14.3 (10.0-20.0) Serum Glucose 91 mg/dL (74-106) Calcium Level 9.3 mg/dL (8.7-10.4) White Blood Count 5.6 10^3/uL (4.4-10.8) Red Blood Count 3.77 10^6/uL (4.0-5.20) Hemoglobin 11.3 g/dL (12.2-16.2) Hematocrit 34.4 % (36.0-46.0) Mean Corpuscular Volume 91.2 fL (80.0-100.0) Mean Corpuscular Hemoglobin 29.9 pg (28.0-32.0) Mean Corpuscular Hemoglobin Concent 32.8 g/dL (32.0-36.0) Red Cell Distribution Width 17.1 % (11.8-14.3) Platelet Count 130 10^3/uL (140-450) Mean Platelet Volume 7.9 fL (6.9-10.8) Neutrophils (%) (Auto) 64.2 % (37.0-80.0) Lymphocytes (%) (Auto) 20.2 % (10.0-50.0) Monocytes (%) (Auto) 10.9 % (0.0-12.0) Eosinophils (%) (Auto) 4.0 % (0.0-7.0) Basophils (%) (Auto) 0.7 % (0.0-2.0) Neutrophils # (Auto) 3.6 10 ^3/uL (1.6-8.6) Lymphocytes # (Auto) 1.1 10 ^3/uL (0.4-5.4) Monocytes # (Auto) 0.6 10 ^3/uL (0-1.3) Eosinophils # (Auto) 0.2 10 ^3/uL (0-0.8) Basophils # (Auto) 0 10 ^3/uL (0-0.2) Nucleated Red Blood Cells 0.0 % Troponin I High Sensitivity 7 ng/L (</=34) Magnesium Level 2.3 mg/dL (1.6-2.6) Total Bilirubin 0.6 mg/dL (0.2-1.0) Aspartate Amino Transferase (AST) 23 U/L (13-40) Alanine Aminotransferase (ALT) 10 U/L (7-40) Alkaline Phosphatase 68 U/L (46-116) B-Type Natriuretic Peptide 219.68 pg/mL (0-100) Total Protein 7.1 g/dL (5.7-8.2) Albumin 4.6 g/dL (3.2-4.8) Other Laboratory Tests 05/31/25 04:56 05/30/25 06:01 Brief Hx & Hospital Course: 89-year-old female with a known history of dual chamber permanent pacemaker placement, status post AVR and MVR, hypertension, hypothyroidism presented to the hospital with the increasing shortness a breath and bilateral leg swelling for last two weeks found to have acute on chronic congestive heart failure exacerbation probably diastolic dysfunction. Patient was given IV diuretics as well as potassium supplement. Patient's leg swelling has been decreased as well as shortness a breath has been improved. Patient is requesting to go home. Patient is being discharged under stable condition. Patient needs to follow up with the PCP and Cardiology with a repeat BMP in 1-2 weeks. Condition at Discharge: Stable Final Diagnosis/Problems List 89-year-old female with a known history of dual chamber permanent pacemaker placement, status post AVR and MVR, hypertension, hypothyroidism presented to the hospital with the increasing shortness a breath and bilateral leg swelling for last two weeks found to have 1. Acute on chronic congestive heart failure exacerbation probably diastolic dysfunction 2. Dyspnea on exertion secondary to 1. 3. Status post dual-chamber pacemaker placement 4. Status post aortic valve replacement 5. Status post mitral valve replacement prosthetic heart valve 6. Hypertension 7. Suspected pulmonary hypertension Discharge Disposition: Home with [facility] Services SN[facility] Discharge Will this Physician continue t: No Discharge Instruct/Medications Diet: Cardiac 2g Na,low cholest Activity: No Restrictions, As Tolerated Follow Up/Referral: Please follow up with the PCP and Cardiology in 1-2 weeks with a repeat BMP Medications: Resume home medication, Lasix and Klor-Con prescribed. New Medications: Furosemide (Lasix) 40 Mg Tab 40 MG PO DAILY, #30 TAB Potassium Chloride (Klor-Con M10) 10 Meq Tab 1 TAB PO DAILY, #30 TAB 5 Refills Continued Medications: Acetaminophen (Acetaminophen) Unknown Strength Tab Unknown Dose PO PRN PRN for MILD PAIN for 30 Days, MG 0 Refills Albuterol Sulfate (Ventolin Mdi) 90 Mcg Ih 2 PUFF IN PRN, INH Alprazolam (Alprazolam) 0.5 Mg Tab 1 TAB PO PRN, #30 TAB Amiodarone Hcl (Amiodarone Hcl) 100 Mg Tab 100 MG PO DAILY, TAB Amlodipine Besylate (Norvasc Tablet) 5 Mg Tb 1 TAB PO DAILY, #30 TAB 5 Refills B-Complex W/ Folic Acid (B Complex) Tab 1 TAB PO DAILY, TAB Budesonide-Formoterol Fumarate (Budesonide/Formoterol Fum 160-4.5 Mcg/Act) 1 Aer Aer 2 PUFF PO BID for 30 Days, #10.2 Calcium Carbonate (Calcium) 600 Mg Tab 600 MG PO, TAB Calcium Carbonate-Vitamin D (Calcium 600+D) +D Tab 1 TAB PO DAILY, TAB Famotidine (Famotidine) 20 Mg Tab 20 MG PO PRN for 30 Days, MG Levothyroxine Sodium (Levothyroxine Sodium) 50 Mcg Tab 1 TAB PO QAM for 90 Days, #90 Multiple Vitamin (Multivitamins) Tab 1 TAB PO DAILY, #90 TAB 3 Refills Oxybutynin Chloride (Oxybutynin Chloride) 5 Mg Tab 1 TAB PO DAILY for 90 Days, #90 Tramadol Hcl (Tramadol Hcl) 50 Mg Tab 1 TAB PO DAILYP for 30 Days, #30 Warfarin Sodium (Warfarin Sodium) 5 Mg Tab 1 TAB PO DAILY, #90 TAB 1 Refill Discontinued Medications: Carvedilol (Carvedilol) 25 Mg Tab 25 MG PO Q12HR for 30 Days, MG Scheduled Albuterol Sulfate (Ventolin Mdi), 2 PUFF IN PRN, (Reported) Alprazolam (Alprazolam), 1 TAB PO PRN, (Reported) Amiodarone Hcl (Amiodarone Hcl), 100 MG PO DAILY, (Reported) Amlodipine Besylate (Norvasc Tablet), 1 TAB PO DAILY, (Reported) B-Complex W/ Folic Acid (B Complex), 1 TAB PO DAILY, (Reported) Budesonide-Formoterol Fumarate (Budesonide/Formoterol Fum 160-4.5 Mcg/Act), 2 PUFF PO BID, (Reported) Calcium Carbonate-Vitamin D (Calcium 600+D), 1 TAB PO DAILY, (Reported) Carvedilol (Carvedilol), 25 MG PO Q12HR, (Reported) Famotidine (Famotidine), 20 MG PO PRN, (Reported) Furosemide (Lasix), 40 MG PO DAILY Levothyroxine Sodium (Levothyroxine Sodium), 1 TAB PO QAM, (Reported) Multiple Vitamin (Multivitamins), 1 TAB PO DAILY, (Reported) Oxybutynin Chloride (Oxybutynin Chloride), 1 TAB PO DAILY, (Reported) Potassium Chloride (Klor-Con M10), 1 TAB PO DAILY Tramadol Hcl (Tramadol Hcl), 1 TAB PO DAILYP, (Reported) Warfarin Sodium (Warfarin Sodium), 1 TAB PO DAILY, (Reported) Scheduled PRN Acetaminophen (Acetaminophen), Unknown Dose PO PRN PRN for MILD PAIN, (Reported) Miscellaneous Medications Calcium Carbonate (Calcium), 600 MG PO, (Reported) Discharge Statement: "Patient was advised to return to the ER or call 911 if any headaches, dizziness, shortness of breath, chest pain, abdominal pain, bleeding, fevers, or worsening of medical condition. Patient was counseled about treatment plan, medications, possible side effects, patientverbalized understanding. All questions were answered to the best of my ability. This discharge took greater then 30 minutes in planning, reviewing documentation, counseling the patient, and discussing with other team members." ASSESSMENT ASSESSMENT Assessment 89-year-old female with a known history of dual chamber permanent pacemaker placement, status post AVR and MVR, hypertension, hypothyroidism presented to the hospital with the increasing shortness a breath and bilateral leg swelling for last two weeks found to have 1. Acute on chronic congestive heart failure exacerbation probably diastolic dysfunction 2. Dyspnea on exertion secondary to 1. 3. Status post dual-chamber pacemaker placement 4. Status post aortic valve replacement 5. Status post mitral valve replacement prosthetic heart valve 6. Hypertension 7. Suspected pulmonary hypertension Date of Service: May 31, 2025 Billing Provider: EVELINA NUÑEZ MD Common Visit Codes: NOT BILLABLE EVELINA NUÑEZ MD May 31, 2025 16:51
[2025-05-31 16:57] VITALS: BP 103/55; PULSE 61; TEMP 37.2
[2025-05-31 17:00] VITALS: BP 132/69; PULSE 60; RESP 18; TEMP 98.3; O2SAT 96
--- NOTE | 2025-05-31 19:26 | DVHPN2 ---
Progress Note - Dictate Date Seen: May 31, 2025 Medical Necessity Reason Pt with a Central, PICC or Fol: No Subjective Patient was seen and evaluated in follow up. No overnight events. Patient denies any cardiac symptoms. Patient is cardiac stable for discharge. Telemetry reviewed. vital signs Vital Sign Date Time Temp Pulse Resp B/P (MAP) Pulse Ox O2 Delivery O2 Flow Rate FiO2 05/31/25 16:57 37.2 61 05/31/25 13:00 18 103/55 (71) 92 05/31/25 08:00 Room Air* 0 21 Total Intake and Output 05/30/25 05/30/25 05/31/25 15:00 23:00 07:00 Intake Total 510 ml 570 ml Output Total 600 ml 1300 ml Balance -90 ml -730 ml medications Current Medications Medications Dose Ordered Sig/Kari Route Start Time Stop Time Status Last Admin Dose Admin Nitroglycerin 0.4 mg Q5MINP PRN SL 05/28/25 23:30 Morphine Sulfate 2 mg Q30M PRN IV 05/28/25 23:30 Furosemide 40 mg BID IV 05/29/25 10:00 05/31/25 09:46 40 MG Ondansetron HCl 4 mg Q6HPRN PRN IV 05/28/25 23:30 Acetaminophen/ Hydrocodone Bitart 1 tab Q6HPRN PRN PO 05/28/25 23:30 05/30/25 10:41 1 TAB Acetaminophen 650 mg Q6HPRN PRN PO 05/28/25 23:30 05/30/25 18:39 650 MG Pantoprazole Sodium 40 mg DAILY IV 05/29/25 10:00 05/31/25 09:43 40 MG Melatonin 5 mg ONCE@2200 PRN PO 05/28/25 23:30 05/29/25 23:50 5 MG Docusate Sodium 100 mg BIDPRN PRN PO 05/28/25 23:30 Levothyroxine Sodium 50 mcg QAM PO 05/30/25 07:00 05/31/25 05:27 50 MCG Multivitamins 1 tab DAILY PO 05/29/25 10:00 05/31/25 09:43 1 TAB Patient Own Medication 1 DAILY PO 05/29/25 10:00 Calcium/Vitamin D 1 tab DAILY PO 05/29/25 10:00 05/31/25 09:43 1 TAB Amiodarone HCl 50 mg DAILY PO 05/29/25 10:00 Hold Alprazolam 0.5 mg PRN PO 05/29/25 07:45 Hold Amlodipine Besylate 5 mg DAILY PO 05/29/25 10:00 05/31/25 09:46 5 MG Warfarin Sodium PER PHARMACY PO 05/30/25 13:45 Carvedilol 12.5 mg Q12HR PO 05/30/25 22:00 05/31/25 10:57 12.5 MG objective GENERAL: Alert and oriented x 3. No acute distress. EYES: PERRL, EOMI. Anicteric. HENT: Moist mucous membranes. LUNGS: Clear to auscultation bilaterally. CARDIOVASCULAR: Regular rate and rhythm. ABDOMEN: Soft, nontender and nondistended. EXTREMITIES: + pitting edema. NEUROLOGIC: No focal neurological deficits. SKIN: Warm, dry. laboratory and microbiology Laboratory Tests 05/31/25 04:56 05/30/25 06:01 Test 05/31/25 04:56 Range/Units Serum Glucose 91 74-106 mg/dL Problem List Mild volume overload in the setting of recent Lasix dose reduction. Preserved LV systolic function. s/p aortic and mitral valve replacement (bioprosthetic) on Coumadin. Presence of dual-chamber permanent pacemaker. Pulmonary hypertension. Severe tricuspid valve regurgitation. History of AFib. Hypothyroidism. Assessment/Plan Continued all current supportive medical care. IV antibiotics as ordered. Coreg. Amlodipine. Diuretics with Lasix. [place] and Morphine for pain management. Additional plan as per the hospital course. Plan discussed with: Patient GIL BROOKS MD May 31, 2025 17:53
== END 2025-05-31 17:40 | disposition home health service (06) | DRG 291 ==
LOC: ER 21:33 → OVERFLOW 23:29 → TELE-WESTW 05-29 04:55
PROVIDERS: ADMIT Nurse Practitioner Family; ATTEND Nurse Practitioner Family
DX: I11.0 Hypertensive heart disease with heart failure (principal); I50.33 Acute on chronic diastolic (congestive) heart failure; E03.9 Hypothyroidism, unspecified; I27.20 Pulmonary hypertension, unspecified; I48.91 Unspecified atrial fibrillation; I50.813 Acute on chronic right heart failure; I07.1 Rheumatic tricuspid insufficiency; Z95.0 Presence of cardiac pacemaker; Z95.2 Presence of prosthetic heart valve; Z87.891 Personal history of nicotine dependence; Z82.49 Family history of ischemic heart disease and other diseases of the circulatory system; Z79.01 Long term (current) use of anticoagulants; Z88.2 Allergy status to sulfonamides; Z79.899 Other long term (current) drug therapy
CPT/HCPCS: 36415; 71045; 78582; 80048; 80053; 83735; 83880; 84484; 85025; 85610; 85730; 93005; 93306; 93970; 97110; 97116; 97163; 97530; G0378; J2470